=== PATIENT | female | born 1970 | race Caucasian/White ===

== ENCOUNTER → 2018-01-28 | Outpatient (CLI) | payer BC, OTHER ==
[~2018-01-28] MED LIST: ACET250 PO; DULO30CA35 PO; ESC10 PO; FURO-45 PO; GABA-549 PO; LIS10 PO; LOR5 PO; LOR5/325 PO; ONDA4TAB PO; PANT40TA65 PO; POTA20TA85 PO; TOPI50TA92 PO; TRA50 PO; TRAZ50 PO
--- NOTE | 2018-02-21 11:22 | RADIOLOGY IMAGING REPORT ---
FACILITY: [facility] - [place] PATIENT NAME: ZACH FLOREZ : [id number] MR: [id number] V: [id number] EXAM DATE: [id number] ORDERING PHYSICIAN: NAKUL GARCIA TECHNOLOGIST: Rhona Duran PROCEDURE:BILATERAL DIGITAL SCREENING MAMMOGRAM WITH CAD ASSISTED INTERPRETATION & 3D TOMOSYNTHESIS COMPARISON:Prior mammograms dated 04/12/14 which have just now become available. INDICATIONS:SCREENING FINDINGS: Moderate amount of fibroglandular tissue is seen throughout the breasts. The parenchymal pattern has mostly remained stable allowing for difference in mammographic technique & patient positioning. Just lateral to the nipple on the Right CC view there is a rounded area of increased density which is best seen on tomographic image #1 of 68. Spot compression view recommended for further evaluation. DIAGNOSTIC CATEGORY 0--INCOMPLETE: NEED ADDITIONAL IMAGING EVALUATION. RECOMMENDATIONS: ADDITIONAL MAMMOGRAPHIC VIEWS REQUIRED: RIGHT BREAST. IMPRESSION: BIRADS 0: Incomplete, need additional imaging evaluation. Additional views of the Right breast recommended. Dictated by: Maggie Billings M.D. on 02/21/2018 at 11:05 Transcribed by: ROC on 02/21/2018 at 11:08 Approved by: Maggie Billings M.D. on 02/21/2018 at 11:21 [facility]
== END ==
LOC: MAMO 01:30
PROVIDERS: ATTEND Nurse Practitioner Family
DX: Z12.31 Encounter for screening mammogram for malignant neoplasm of breast (principal); Z80.3 Family history of malignant neoplasm of breast; R92.2 Inconclusive mammogram
CPT/HCPCS: 77063; 77067

== ENCOUNTER 2018-02-02 16:24 | Emergency (ER) | payer BC ==
[~2018-02-02 16:24] MED LIST changes: -DULO30CA35 PO; -FURO-45 PO; -GABA-549 PO; -ONDA4TAB PO; -PANT40TA65 PO; -POTA20TA85 PO; -TOPI50TA92 PO
--- NOTE | 2018-02-02 16:28 | ER Report ---
History and Physical Time Seen By MD: 16:27 HPI/ROS CHIEF COMPLAINT: Right dorsal medial foot pain, edema HISTORY OF PRESENT ILLNESS: Patient is a 47-year-old female here status post injury to the dorsal medial right foot. Patient reportedly dropped a heavy jar of pickles on the dorsum of her foot yesterday at approximately 12:30 in the afternoon. Patient reports mild paresthesias of the plantar aspect of the foot, ecchymosis and increased swelling today. Patient does take hydrocodone for chronic pain and has been continuing this medication in the interim. Patient has not taken anti-inflammatory medications or applied ice packs to the site. Patient denies further injuries at this time and is otherwise neurovascularly intact with good perfusion distal to the injury site. REVIEW OF SYSTEMS: Constitutional: No fever, no chills. Musculoskeletal: + dorsal and medial right foot pain with increased edema today s/p trauma Skin: + ecchymosis of the dorsal medial right foot Neurological: NV exam intact distal to the injury site Allergies: Coded Allergies: Sulfa (Sulfonamide Antibiotics) (Verified Allergy, Mild, 09/21/08) Home Meds Reported Medications Lisinopril (Prinivil) 10 Mg Tab, 10 MG PO QDAY, #20 0 Refills 09/21/08 Trazodone Hcl (Desyrel) 50 Mg Tab, 25 MG PO HS, 0 Refills 09/21/08 Escitalopram Oxalate (Lexapro) 10 Mg Tab, 10 MG PO QDAY, 0 Refills 09/21/08 Acetaminophen/Hydrocodone (Lortab 5/325 Mg) 5 Mg/325 Mg Tab, 1 TAB PO Q6-8H Y, 0 Refills 09/21/08 Acetazolamide (Diamox) 250 Mg Tab, 500 MG PO TID, #20 0 Refills 09/21/08 Constitutional Vital Sign - Last 24 Hours 02/02/18 02/02/18 02/02/18 02/02/18 16:27 16:27 16:30 16:54 Temp 98.0 Pulse 82 74 Resp 20 B/P (MAP) 135/76 135/76 (95) 127/80 (96) Pulse Ox 93 O2 Delivery Room Air 02/02/18 02/02/18 17:00 17:24 Pulse 70 B/P (MAP) 131/75 (93) Pulse Ox 95 Physical Exam General Appearance: The patient is alert, has no immediate need for airway protection and no signs of toxicity. NAD Neurological: Neurovascular exam intact in the injured foot with good distal perfusion to the injury site Skin: + Ecchymosis of the dorsal medial right foot Musculoskeletal: + Pain and swelling at the injury site of the right foot, pain with range of motion and weightbearing DIFFERENTIAL DIAGNOSIS: After history and physical exam differential diagnosis was considered for contusion, abrasion, fracture, dislocation Medical Decision Making EKG/Imaging Imaging Location: [facility] [place] Patient: Mary Cui : 1970 Visit/Account:[id number] Date of Sevice: 02/02/2018 Exam type: FOOT 3 VIEW RIGHT History: Comparison: None. Findings: There is soft tissue swelling over the forefoot. No acute fracture seen. Metatarsals appear to be intact. Hallux valgus deformity is noted with degenerative changes at the 1st MTP joint. Calcaneal heel spur is noted. Degenerative changes are noted and midfoot. IMPRESSION: 1. Soft tissue swelling of the forefoot but no acute fracture identified. ED Course/Re-evaluation ED Course Patient is a 47-year-old female here status post dropping a pickle jar on her right foot yesterday approximately 12:30. Patient reports that the jar was large and heavy and that she has developed increased swelling and ecchymosis at the site since time of injury. Patient has been continuing her chronic pain medication hydrocodone but has not attempted to apply ice or anti-inflammatory agents. Patient is neurovascularly intact with good perfusion distal to the injury site. X-ray imaging was completed. Patient was given Toradol for anti- inflammatory effects. X-ray showed no acute fractures. Patient was advised to continue her home medications and apply ice and take NSAIDs for further symptom management. Patient was in no acute distress and able to ambulate without issue prior to discharge Decision to Disposition Date: Feb 02, 2018 Decision to Disposition Time: 17:29 Depart Departure Latest Vital Signs Vital Signs Date Time Temp Pulse Resp B/P (MAP) Pulse Ox O2 Delivery O2 Flow Rate FiO2 02/02/18 17:24 70 95 02/02/18 17:00 131/75 (93) 02/02/18 16:27 98.0 20 Room Air Impression: Primary Impression: Contusion Condition: Improved Disposition: HOME OR SELF-CARE Referrals: NAKUL GARCIA (PCP) Patient Instructions: Contusion in Adults (ED) Additional Instructions: No fracture was identified on x-ray imaging. Please continue your home pain medications as prescribed. You may take NSAIDs such as ibuprofen, naproxen as needed for inflammatory pain control. You may apply ice to the injury site for swelling and pain relief. DONTE GARCIA DO Feb 02, 2018 16:28
[2018-02-02] MEDS ORDERED: KETOROLAC 30 MG/ML VIAL IM ONE (16:35)
[2018-02-02 17:00] VITALS: BP 131/75
--- NOTE | 2018-02-02 17:06 | RADIOLOGY IMAGING REPORT ---
FACILITY: [facility] - [place] PATIENT NAME: Mary Cui : 1970 MR: [id number] V: [id number] EXAM DATE: ORDERING PHYSICIAN: DONTE GARCIA TECHNOLOGIST: Location: [facility] Patient: Mary Cui : 1970 Visit/Account:[id number] Date of Sevice: 02/02/2018 Exam type: FOOT 3 VIEW RIGHT History: Comparison: None. Findings: There is soft tissue swelling over the forefoot. No acute fracture seen. Metatarsals appear to be int act. Hallux valgus deformity is noted with degenerative changes at the 1st MTP joint. Calcaneal heel spur is noted. Degenerative changes are noted and midfoot. IMPRESSION: 1. Soft tissue swelling of the forefoot but no acute fracture identified. Report Dictated By: Aries Garcia MD at 02/02/2018 4:59 PM Report E-Signed By: Aries Garcia MD at 02/02/2018 5:01 PM [id number]
== END 2018-02-02 17:32 | disposition home or self-care (01) ==
LOC: ER 16:40
DX: S90.31XA Contusion of right foot, initial encounter (principal)
CPT/HCPCS: 73630; 96372; 99283; J1885

== ENCOUNTER 2018-02-09 08:55 | Emergency (ER) | payer BC ==
[2018-02-09] MEDS ORDERED: KETOROLAC 30 MG/ML VIAL IVP ONE (09:15)
[2018-02-09] MEDS ORDERED: METOCLOPRAMIDE 10 MG/2 ML SDV IVP ONE (09:15)
[2018-02-09] MEDS ORDERED: DEXAMETHASONE SOD PHOS 10MG/ML IVP ONE (09:15)
[2018-02-09] MEDS ORDERED: NS(*) 0.9% 1000 ML BAG 1,000 ML IV ONE (09:15)
--- NOTE | 2018-02-09 09:15 | ER Report ---
History and Physical Time Seen By MD: 09:15 Hx. of Stated Complaint: MIGRAINE X4 DAYS. HAS TAKE IMITREX & EXEDRINE THIS AM. MIGRAINE SIMILAR TO PAST ONES BUT WILL NOT CEASE. MAUSEA & 9/10 PAIN. DENIES TRAUMA. HPI/ROS 47-year-old female who has been battling worsening migraines for the past 6 months. She presents to the emergency department with atypical migraine, however it continues in spite of therapy she already has at home. Is not the worse headache of her life. No fever chills or meningismus. She is already working with a neurologist and a chiropractor. She denies any trauma. No focal neurologic deficits or complaints. Remainder of the 14 system rev: Yes Allergies: Coded Allergies: Sulfa (Sulfonamide Antibiotics) (Verified Allergy, Mild, 09/21/08) Home Meds Reported Medications Topiramate (TOPIRAMATE) 50 Mg Tablet, 50 MG PO BID 02/09/18 Gabapentin (GABAPENTIN) 300 Mg Capsule, 300 MG PO QID, CAPSULE 02/09/18 Duloxetine Hcl (CYMBALTA) 30 Mg Capsule.dr, 30 MG PO QDAY, #5 CAP 02/09/18 Furosemide (FUROSEMIDE) 20 Mg Tablet, 1 TAB PO Q6H, TAB 02/09/18 Pantoprazole Sodium (PANTOPRAZOLE SODIUM) 40 Mg Tablet.dr, 40 MG PO QDAY, TAB.SR 02/09/18 Acetaminophen/Hydrocodone (Lortab 5/325 Mg) 5 Mg/325 Mg Tab, 1 TAB PO Q6-8H PRN, 0 Refills 09/21/08 Discontinued Reported Medications Lisinopril (Prinivil) 10 Mg Tab, 10 MG PO QDAY, #20 0 Refills 09/21/08 Trazodone Hcl (Desyrel) 50 Mg Tab, 25 MG PO HS, 0 Refills 09/21/08 Escitalopram Oxalate (Lexapro) 10 Mg Tab, 10 MG PO QDAY, 0 Refills 09/21/08 Acetazolamide (Diamox) 250 Mg Tab, 500 MG PO TID, #20 0 Refills 09/21/08 Reviewed Nurses Notes: Yes Old Medical Records Reviewed: Yes Hx Smoking: No Smoking Status: Never Smoker Exposure to Second Hand Smoke?: No Hx Substance Use Disorder: No Hx Alcohol Use: No Constitutional Vital Sign - Last 24 Hours 02/09/18 02/09/18 02/09/18 09:06 09:52 10:18 Temp 98.0 Pulse 71 78 Resp 18 12 B/P (MAP) 129/82 115/64 (81) Pulse Ox 95 98 O2 Delivery Room Air Room Air Physical Exam General Appearance: The patient is alert, has no immediate need for airway protection and no current signs of toxicity. Eyes: Pupils equal and round no injection. Respiratory: Chest is non tender, lungs are clear to auscultation. Cardiac: regular rate and rhythm Neck: Neck is supple and non tender. Extremities have full range of motion and are non tender. Skin: No rashes or lesions. DIFFERENTIAL DIAGNOSIS: After history and physical exam differential diagnosis was considered for headache including but not limited to subarachnoid hemorrhage, migraine headache, tension headache and infectious causes such as meningitis, pharyngitis and sinusitis. Medical Decision Making ED Course/Re-evaluation ED Course Uncomplicated migraine headache treated adequately with Reglan, Toradol, and Decadron. Not worrisome for meningitis, other infection, or SAH. Will follow-up with primary providers. Decision to Disposition Date: Feb 09, 2018 Decision to Disposition Time: 10:14 Depart Departure Latest Vital Signs Vital Signs Date Time Temp Pulse Resp B/P (MAP) Pulse Ox O2 Delivery O2 Flow Rate FiO2 02/09/18 10:18 78 12 115/64 (81) 98 Room Air 02/09/18 09:52 98.0 Impression: Primary Impression: Migraine headache Condition: Improved Disposition: HOME OR SELF-CARE Referrals: NAKUL GARCIA (PCP) Patient Instructions: Migraine Headache (ED) Problem Qualifiers Primary Impression: Migraine headache Migraine type: without aura Status migrainosus presence: without status migrainosus Intractability: not intractable Qualified Codes: G43.009 - Migraine without aura, not intractable, without status migrainosus JEFF TAVAREZ MD Feb 09, 2018 09:15
[2018-02-09] MEDS ORDERED: DULO30CA35 PO (09:45)
[2018-02-09] MEDS ORDERED: TOPI50TA92 PO (09:45)
[2018-02-09] MEDS ORDERED: FURO-45 PO (09:45)
[2018-02-09] MEDS ORDERED: GABA-549 PO (09:45)
[2018-02-09] MEDS ORDERED: PANT40TA65 PO (09:45)
[2018-02-09 10:18] VITALS: BP 115/64
== END 2018-02-09 10:24 | disposition home or self-care (01) ==
LOC: ER 09:10
DX: G43.009 Migraine without aura, not intractable, without status migrainosus (principal)
CPT/HCPCS: 96361; 96374; 96375; 99284; J1100; J1885; J2765; J7030

== ENCOUNTER 2018-02-18 20:13 | Emergency (ER) | payer BC ==
[~2018-02-18 20:13] MED LIST changes: +DULO30CA35 PO; +FURO-45 PO; +GABA-549 PO; +PANT40TA65 PO; +TOPI50TA92 PO
--- NOTE | 2018-02-18 20:23 | ER Report ---
History and Physical Time Seen By MD: 20:23 HPI/ROS CHIEF COMPLAINT: abdominal pain HISTORY OF PRESENT ILLNESS: This is a 47 year old female. She is having pain in the right side of the abdomen. Having right upper abdominal pain for the last fe w days, some radiation to CVA on right. Today started with pain in the right lower abdomen as well. No fevers or chills with this. Nothing makes the pain better. Normal bowels. No dysuria. Having some nausea, but no vomiting. Has had her appendix removed. Has had her gallbladder removed. Has had a gastric band, with complication with a hole in stomach that was repaired. History of hysterectomy. Allergies: Coded Allergies: Sulfa (Sulfonamide Antibiotics) (Verified Allergy, Mild, 09/21/08) Home Meds Active Scripts Potassium Chloride (KLOR-CON M20) 20 Meq Tab.er.prt, 20 MEQ PO QDAY, #30 TAB 0 Refills Prov:RANDAL CONTRERAS MD 02/19/18 Ondansetron (ZOFRAN ODT) 4 Mg Tab.rapdis, 4 MG PO Q6H PRN for NAUSEA/VOMITING, #20 TAB.TIMOTHY 0 Refills Prov:RANDAL CONTRERAS MD 02/19/18 Hydrocodone Bit/Acetaminophen (HYDROCODON-ACETAMINOPHEN 5-325) 1 Each Tablet, 1 EACH PO Q4H PRN for PAIN, #12 TAB 0 Refills Prov:RANDAL CONTRERAS MD 02/19/18 Reported Medications Topiramate (TOPIRAMATE) 50 Mg Tablet, 50 MG PO BID 02/09/18 Gabapentin (GABAPENTIN) 300 Mg Capsule, 300 MG PO QID, CAPSULE 02/09/18 Duloxetine Hcl (CYMBALTA) 30 Mg Capsule.dr, 30 MG PO QDAY, #5 CAP 02/09/18 Furosemide (FUROSEMIDE) 20 Mg Tablet, 1 TAB PO Q6H, TAB 02/09/18 Pantoprazole Sodium (PANTOPRAZOLE SODIUM) 40 Mg Tablet.dr, 40 MG PO QDAY, TAB.SR 02/09/18 Acetaminophen/Hydrocodone (Lortab 5/325 Mg) 5 Mg/325 Mg Tab, 1 TAB PO Q6-8H PRN, 0 Refills 09/21/08 Reviewed Nurses Notes: Yes Hx Smoking: No Smoking Status: Never Smoker Exposure to Second Hand Smoke?: No Hx Substance Use Disorder: No Hx Alcohol Use: No Constitutional Vital Sign - Last 24 Hours 02/18/18 02/18/18 02/18/18 02/18/18 20:21 22:15 22:30 23:00 Temp 97.8 Pulse 83 71 69 65 Resp 18 B/P (MAP) 124/64 116/56 (76) Pulse Ox 94 90 92 87 O2 Delivery Room Air 02/18/18 02/18/18 02/18/18 02/18/18 23:15 23:30 23:35 23:45 Pulse ? 62 B/P (MAP) ???/??? (1665) 132/51 (78) Pulse Ox 97 97 02/19/18 02/19/18 02/19/18 00:00 00:15 00:30 Pulse 64 66 B/P (MAP) 104/49 (67) 121/68 (85) Pulse Ox 97 98 Intake and Output 02/18/18 02/18/18 02/19/18 14:59 22:59 06:59 Intake Total 1000 ml Balance 1000 ml Physical Exam General Appearance: The patient is alert. Acute distress due to pain. Eyes: Pupils are equal, round. No pallor, injection or icterus. ENT: Mucous membranes are moist. Normal oral mucosa. Posterior oropharynx is normal. Neck: Supple and non tender. Respiratory: Lungs are clear to auscultation. Cardiovascular: Regular rate and rhythm. No murmurs, gallops or rubs. Normal capillary refill. Gastrointestinal: Abdomen is soft, tender in right abdomen. Some guarding, but no rebound. Nondistended. Normal active bowel sounds. Some right sided CVA tenderness. Neurological: Alert and oriented x3. No focal neurologic deficits Skin: Warm and dry. Musculoskeletal: Extremities are nontender. No tenderness in palpation of the cervical, thoracic and lumbar spine. DIFFERENTIAL DIAGNOSIS: After history and physical exam, differential diagnosis was considered for abdominal pain including but not limited to pancreatitis, gastroenteritis, colitis and urinary tract infection. Medical Decision Making Data Points Result Diagram: 02/18/18204002/18/182040 Laboratory Hematology Test 02/18/18 20:41 02/18/18 21:04 Red Blood Count 4.71 M/uL (4.17-5.56) Mean Corpuscular Volume 92.6 fL (80.0-96.0) Mean Corpuscular Hemoglobin 32.1 pg (26.0-33.0) Mean Corpuscular Hemoglobin Concent 34.6 g/dL (32.0-36.0) Red Cell Distribution Width 12.8 % (11.5-14.5) Mean Platelet Volume 7.2 fL (7.2-11.1) Neutrophils (%) (Auto) 67.5 % (39.4-72.5) Lymphocytes (%) (Auto) 23.9 % (17.6-49.6) Monocytes (%) (Auto) 6.6 % (4.1-12.4) Eosinophils (%) (Auto) 1.1 % (0.4-6.7) Basophils (%) (Auto) 0.9 % (0.3-1.4) Nucleated RBC Relative Count (auto) 0.1 /100WBC Neutrophils # (Auto) 6.5 K/uL (2.0-7.4) Lymphocytes # (Auto) 2.3 K/uL (1.3-3.6) Monocytes # (Auto) 0.6 K/uL (0.3-1.0) Eosinophils # (Auto) 0.1 K/uL (0.0-0.5) Basophils # (Auto) 0.1 K/uL (0.0-0.1) Nucleated RBC Absolute Count (auto) 0.01 K/uL Sodium Level 137 mmol/L (137-145) Potassium Level 2.6 mmol/L (3.5-5.0) Chloride Level 100 mmol/L (98-107) Carbon Dioxide Level 29 mmol/L (22-31) Blood Urea Nitrogen 14 mg/dl (7-18) Creatinine 0.60 mg/dl (0.52-1.04) Glomerular Filtration Rate Calc > 60.0 Random Glucose 107 mg/dl (75-110) Lactate 1.4 mmol/L (0.7-2.1) Calcium Level 8.5 mg/dl (8.4-10.2) Total Bilirubin 0.2 mg/dl (0.2-1.3) Aspartate Amino Transf (AST/SGOT) 20 U/L (0-35) Alanine Aminotransferase (ALT/SGPT) 24 U/L (0-56) Alkaline Phosphatase 49 U/L (0-126) Total Protein 5.9 g/dl (6.3-8.2) Albumin 3.8 g/dl (3.5-5.0) Amylase Level 55 U/L (0-110) Lipase 93 U/L (23-300) Urine Color Yellow Urine Clarity Clear Urine pH 6.0 pH (4.8-9.5) Urine Specific [place] 1.004 Urine Protein Negative mg/dL (NEGATIVE) Urine Glucose (UA) Negative mg/dL (NEGATIVE) Urine Ketones Negative mg/dL (NEGATIVE) Urine Blood Negative (NEGATIVE) Urine Nitrite Negative (NEGATIVE) Urine Bilirubin Negative (NEGATIVE) Urine Urobilinogen Negative mg/dL (0.2-1.9) Urine Leukocyte Esterase Negative (NEGATIVE) Urine RBC <1 /HPF (0-2/HPF) Urine WBC 1 /HPF (0-5/HPF) Urine Squamous Epithelial Cells Many /LPF (</=FEW) Urine Bacteria Few /HPF (NONE-FEW) Urine Mucus None /HPF (NONE-FEW) Chemistry Test 02/18/18 20:41 02/18/18 21:04 White Blood Count 9.6 k/uL (4.5-11.0) Red Blood Count 4.71 M/uL (4.17-5.56) Hemoglobin 15.1 g/dL (12.0-16.0) Hematocrit 43.7 % (34.0-47.0) Mean Corpuscular Volume 92.6 fL (80.0-96.0) Mean Corpuscular Hemoglobin 32.1 pg (26.0-33.0) Mean Corpuscular Hemoglobin Concent 34.6 g/dL (32.0-36.0) Red Cell Distribution Width 12.8 % (11.5-14.5) Platelet Count 242 K/uL (150-450) Mean Platelet Volume 7.2 fL (7.2-11.1) Neutrophils (%) (Auto) 67.5 % (39.4-72.5) Lymphocytes (%) (Auto) 23.9 % (17.6-49.6) Monocytes (%) (Auto) 6.6 % (4.1-12.4) Eosinophils (%) (Auto) 1.1 % (0.4-6.7) Basophils (%) (Auto) 0.9 % (0.3-1.4) Nucleated RBC Relative Count (auto) 0.1 /100WBC Neutrophils # (Auto) 6.5 K/uL (2.0-7.4) Lymphocytes # (Auto) 2.3 K/uL (1.3-3.6) Monocytes # (Auto) 0.6 K/uL (0.3-1.0) Eosinophils # (Auto) 0.1 K/uL (0.0-0.5) Basophils # (Auto) 0.1 K/uL (0.0-0.1) Nucleated RBC Absolute Count (auto) 0.01 K/uL Glomerular Filtration Rate Calc > 60.0 Lactate 1.4 mmol/L (0.7-2.1) Calcium Level 8.5 mg/dl (8.4-10.2) Total Bilirubin 0.2 mg/dl (0.2-1.3) Aspartate Amino Transf (AST/SGOT) 20 U/L (0-35) Alanine Aminotransferase (ALT/SGPT) 24 U/L (0-56) Alkaline Phosphatase 49 U/L (0-126) Total Protein 5.9 g/dl (6.3-8.2) Albumin 3.8 g/dl (3.5-5.0) Amylase Level 55 U/L (0-110) Lipase 93 U/L (23-300) Urine Color Yellow Urine Clarity Clear Urine pH 6.0 pH (4.8-9.5) Urine Specific [place] 1.004 Urine Protein Negative mg/dL (NEGATIVE) Urine Glucose (UA) Negative mg/dL (NEGATIVE) Urine Ketones Negative mg/dL (NEGATIVE) Urine Blood Negative (NEGATIVE) Urine Nitrite Negative (NEGATIVE) Urine Bilirubin Negative (NEGATIVE) Urine Urobilinogen Negative mg/dL (0.2-1.9) Urine Leukocyte Esterase Negative (NEGATIVE) Urine RBC <1 /HPF (0-2/HPF) Urine WBC 1 /HPF (0-5/HPF) Urine Squamous Epithelial Cells Many /LPF (</=FEW) Urine Bacteria Few /HPF (NONE-FEW) Urine Mucus None /HPF (NONE-FEW) Urinalysis Test 02/18/18 21:04 Urine Color Yellow Urine Clarity Clear Urine pH 6.0 pH (4.8-9.5) Urine Specific [place] 1.004 Urine Protein Negative mg/dL (NEGATIVE) Urine Glucose (UA) Negative mg/dL (NEGATIVE) Urine Ketones Negative mg/dL (NEGATIVE) Urine Blood Negative (NEGATIVE) Urine Nitrite Negative (NEGATIVE) Urine Bilirubin Negative (NEGATIVE) Urine Urobilinogen Negative mg/dL (0.2-1.9) Urine Leukocyte Esterase Negative (NEGATIVE) Urine RBC <1 /HPF (0-2/HPF) Urine WBC 1 /HPF (0-5/HPF) Urine Squamous Epithelial Cells Many /LPF (</=FEW) Urine Bacteria Few /HPF (NONE-FEW) Urine Mucus None /HPF (NONE-FEW) EKG/Imaging Imaging EXAMINATION: CT abdomen with IV contrast CT pelvis with IV contrast HISTORY: Right-sided abdominal pain for one week. History of appendectomy and cholecystectomy. COMPARISON: None. TECHNIQUE: Axial images were taken through the abdomen and pelvis with intravenous contrast. Sagittal and coronal reformatted images are also submitted. CONTRAST: 75 mL of IV Isovue-[id number] One of the following dose optimization techniques was utilized in the performance of this exam: Automated exposure control; adjustment of the mA and/or kV according to the patient's size; or use of an iterative reconstruction technique. Specific details can be referenced in the facility's radiology CT exam operational policy. FINDINGS: Liver/biliary: Status post cholecystectomy. The liver is unremarkable. Pancreas: Negative. Spleen: Negative. Adrenal glands: Negative. Kidneys: Several small cysts in both kidneys. No hydronephrosis. Pelvic structures: Status post hysterectomy. A 1.8 cm simple appearing cyst or dominant follicle in the left ovary. A 1.6 cm cyst or follicle in the right ovary. Bowel: There is focal wall thickening of the stomach at the gastroesophageal junction. Status post appendectomy. Peritoneum/retroperitoneum/mesenteries: No intraperitoneal free air or free fluid. Vessels: Mild calcified plaque of the aorta and iliac arteries. Musculoskeletal/body wall: Surgical changes in the anterior abdominal wall. Mild multilevel disc and facet degenerative changes in the lumbar spine. Lymph node assessment: Negative. Lower chest: Negative. IMPRESSION: No CT evidence of acute pathology in the abdomen or pelvis. Focal wall thickening of the stomach at the gastroesophageal junction likely represents changes from previous surgery. Several small cysts in the kidneys. 1.8 cm cyst or follicle in the left ovary and 1.6 cm cyst or follicle in the right ovary. Report Dictated By: Danielito Coello MD at 02/18/2018 10:07 PM EXAMINATION: ENDOVAGINAL PELVIC ULTRASOUND WITH DOPPLER DATE: 02/18/2018 10:48 PM INDICATION: Right-sided pain. TECHNIQUE: Endovaginal ramos scale, color, and pulsed Doppler ultrasound examination of the pelvis was performed. COMPARISON: Same day CT abdomen and pelvis. FINDINGS: The uterus is surgically absent. The right ovary measures 2.9 x 3.1 x 2.6 cm and demonstrates a probable dominant follicle measuring 2 cm in diameter and normal arterial waveforms on pulsed Doppler. The left ovary measures 3.4 x 3.0 x 2.5 cm and demonstrates a probable dominant follicle measuring 1.8 cm in diameter and normal arterial waveforms on pulsed Doppler. There is no free fluid or adnexal mass in the pelvic cavity. IMPRESSION: Probable bilateral dominant ovarian follicles with no evidence of torsion. Report Dictated By: Thong Marmolejo MD at 02/18/2018 11:56 PM ED Course/Re-evaluation Clinical Indication for ER IV: Hydration, IV Access ED Course Labs were unremarkable other than low potassium and I discussed this with the patient. CT scan was negative for acute abnormality. Ultrasound was done transvaginally and shows no signs of torsion or other problems other than small cysts on the ovary. No sign of cyst rupture. Patient was still having pain. We did cover her several doses of IV pain medicine while here in the ER. After discussion of the labs and imaging results, recommended follow-up with her [facility] doctor and suggested GI evaluation with possible need for colonoscopy for further evaluation of her pain. Decision to Disposition Date: Feb 19, 2018 Decision to Disposition Time: 00:15 Depart Departure Latest Vital Signs Vital Signs Date Time Temp Pulse Resp B/P (MAP) Pulse Ox O2 Delivery O2 Flow Rate FiO2 02/19/18 00:30 121/68 (85) 02/19/18 00:15 66 98 02/18/18 20:21 97.8 18 Room Air Impression: Primary Impression: Abdominal pain Additional Impression: Hypokalemia Condition: Stable Disposition: HOME OR SELF-CARE Referrals: NAKUL GARCIA (PCP) New Scripts Potassium Chloride (KLOR-CON M20) 20 Meq Tab.er.prt 20 MEQ PO QDAY, #30 TAB 0 Refills Prov: RANDAL CONTRERAS MD 02/19/18 Ondansetron (ZOFRAN ODT) 4 Mg Tab.rapdis 4 MG PO Q6H PRN for NAUSEA/VOMITING, #20 TAB.TIMOTHY 0 Refills Prov: RANDAL CONTRERAS MD 02/19/18 Hydrocodone Bit/Acetaminophen (HYDROCODON-ACETAMINOPHEN 5-325) 1 Each Tablet 1 EACH PO Q4H PRN for PAIN, #12 TAB 0 Refills Prov: RANDAL CONTRERAS MD 02/19/18 Patient Instructions: Acute Abdominal Pain (ED) Additional Instructions: We did not find a major problem that would account for abdominal pain on your evaluation tonight. The next step in your evaluation would be to follow-up with Dr. Garrison here in [facility] for re-evaluation, or with a GI specialist. Take Lortab 5/325, one every 4 hours as needed for pain. Take Zofran 4mg, one every 6 hours as needed for nausea. Take KCl 20mEq once a day and follow-up for repeat labs. Problem Qualifiers Primary Impression: Abdominal pain Abdominal location: unspecified location Qualified Codes: R10.9 - Unspecified abdominal pain RANDAL CONTRERAS MD Feb 18, 2018 20:23
[2018-02-18] MEDS ORDERED: NS(*) 0.9% 1000 ML BAG 1,000 ML IV ONE (20:28)
[2018-02-18] MEDS ORDERED: ONDANSETRON 4 MG/2 ML VIAL IVP ONE (20:30)
[2018-02-18] MEDS ORDERED: PANTOPRAZOLE SOD 40 MG IV VIAL IVP ONE (20:30)
[2018-02-18] MEDS ORDERED: MORPHINE 4 MG/ML SDV IVP ONE (20:30)
[2018-02-18] MEDS ORDERED: IOPAMIDOL 76% 75 ML INFUS BTL 75 ML ONE (20:44)
[2018-02-18 20:51] LABS: PLATELET COUNT, AUTOMATED 242 K/uL (150-450)
[2018-02-18] MEDS ORDERED: HYDROMORPHONE HCL 1 MG/ML SYRINGE IVP ONE ×2 (21:40→22:50)
--- NOTE | 2018-02-18 22:29 | RADIOLOGY IMAGING REPORT ---
FAC[place] [facility] [place] NAME: Mary Cui : 1970 MR: [id number] V: [id number] EXAM DATE: ORDERING PHYSICIAN: RANDAL CONTRERAS TECHNOLOGIST: Location: [facility] - [place] Patient: Mary Cui : 1970 Visit/Account:[id number] Date of Sevice: 02/18/2018 EXAMINATION: CT abdomen with IV contrast CT pelvis with IV contrast HISTORY: Right-sided abdominal pain for one week. History of appendectomy and cholecystectomy. COMPARISON: None. TECHNIQUE: Axial images were taken through the abdomen and pelvis with intravenous contrast. Sagitt al and coronal reformatted images are also submitted. CONTRAST: 75 mL of IV [id number] One of the following dose optimization techniques was utilized in the performance of this exam: Autom ated exposure control; adjustment of the mA and/or kV according to the patient's size; or use of an i terative reconstruction technique. Specific details can be referenced in the facility's radiology C T exam operational policy. FINDINGS: Liver/biliary: Status post cholecystectomy. The liver is unremarkable. Pancreas: Negative. Spleen: Negative. Adrenal glands: Negative. Kidneys: Several small cysts in both kidneys. No hydronephrosis. Pelvic structures: Status post hysterectomy. A 1.8 cm simple appearing cyst or dominant follicle i n the left ovary. A 1.6 cm cyst or follicle in the right ovary. Bowel: There is focal wall thickening of the stomach at the gastroesophageal junction. Status post ap pendectomy. Peritoneum/retroperitoneum/mesenteries: No intraperitoneal free air or free fluid. Vessels: Mild calcified plaque of the aorta and iliac arteries. Musculoskeletal/body wall: Surgical changes in the anterior abdominal wall. Mild multilevel disc and facet degenerative changes in the lumbar spine. Lymph node assessment: Negative. Lower chest: Negative. IMPRESSION: No CT evidence of acute pathology in the abdomen or pelvis. Focal wall thickening of the stomach at the gastroesophageal junction likely represents changes from previous surgery. Several small cysts in the kidneys. 1.8 cm cyst or follicle in the left ovary and 1.6 cm cyst or follicle in the right ovary. Report Dictated By: Danielito Coello MD at 02/18/2018 10:07 PM Report E-Signed By: Danielito Coello MD at 02/18/2018 10:25 PM WSN:[id number]
--- NOTE | 2018-02-19 00:03 | RADIOLOGY IMAGING REPORT ---
FAC[place] [facility] [place]IENT NAME: Mary Cui : 1970 MR: [id number] V: [id number] EXAM DATE: ORDERING PHYSICIAN: RANDAL CONTRERAS TECHNOLOGIST: [facility] Patient: Mary Cui : 1970 Visit/Account:[id number] Date of Sevice: 02/18/2018 EXAMINATION: ENDOVAGINAL PELVIC ULTRASOUND WITH DOPPLER DATE: 02/18/2018 10:48 PM INDICATION: Right-sided pain. TECHNIQUE: Endovaginal ramos scale, color, and pulsed Doppler ultrasound examination of the pelvis was performed. COMPARISON: Same day CT abdomen and pelvis. FINDINGS: The uterus is surgically absent. The right ovary measures 2.9 x 3.1 x 2.6 cm and demonstrates a probable dominant follicle measuring 2 cm in diameter and normal arterial waveforms on pulsed Doppler. The left ovary measures 3.4 x 3.0 x 2.5 cm and demonstrates a probable dominant follicle measuring 1.8 cm in diameter and normal arterial waveforms on pulsed Doppler. There is no free fluid or adnexal mass in the pelvic cavity. IMPRESSION: Probable bilateral dominant ovarian follicles with no evidence of torsion. Report Dictated By: Thong Marmolejo MD at 02/18/2018 11:56 PM Report E-Signed By: Thong Marmolejo MD at 02/18/2018 11:59 PM WSN:[id number]
[2018-02-19] MEDS ORDERED: ONDANSETRON 4 MG ODT TABDP SL ONE (00:15)
[2018-02-19] MEDS ORDERED: ONDANSETRON 4 MG ODT TH SL ONE (00:15)
[2018-02-19] MEDS ORDERED: ACET/HYDROC 5/325MG TH ER ONLY 2 TAB/BOTTLE PO ONE (00:15)
[2018-02-19] MEDS ORDERED: POTASSIUM CHL 20 MEQ TABCR PO ONE (00:15)
[2018-02-19] MEDS ORDERED: APAP/HYDROCODONE 325/5 TAB PO ONE (00:15)
[2018-02-19] MEDS ORDERED: LOR5/325 PO (00:17)
[2018-02-19] MEDS ORDERED: ONDA4TAB PO (00:17)
[2018-02-19] MEDS ORDERED: POTA20TA85 PO (00:17)
[2018-02-19 00:30] VITALS: BP 121/68
== END 2018-02-19 00:58 | disposition home or self-care (01) ==
LOC: ER 20:35
DX: E87.6 Hypokalemia (principal); R10.11 Right upper quadrant pain
CPT/HCPCS: 74177; 76830; 81001; 82150; 83605; 83690; 85025; 96361; 96374; 96375; 96376; 99284; C9113; J1170; J2270; J2405; J7030; Q9967; S0119; 82040; 82247; 82310; 82374; 82435; 82565; 82947; 84075; 84132; 84155; 84295; 84450; 84460; 84520

== ENCOUNTER → 2018-02-25 | Outpatient (CLI) | payer BC ==
[~2018-02-25] MED LIST changes: +ONDA4TAB PO; +POTA20TA85 PO
--- NOTE | 2018-02-26 08:24 | RADIOLOGY IMAGING REPORT ---
FACILITY: [facility] - [place], [place] PATIENT NAME: ZACH FLOREZ : [id number] MR: [id number] V: [id number] EXAM DATE: ORDERING PHYSICIAN: NAKUL GARCIA TECHNOLOGIST: Rhona Duran PROCEDURE:RIGHT DIGITAL DIAGNOSTIC MAMMOGRAM WITH CAD ASSISTED INTERPRETATION & 3D TOMOSYNTHESIS COMPARISON:Prior mammograms 01/28/18, 04/12/14. INDICATIONS:FURTHER EVAL FINDINGS: The patient returns for Spot compression view in the Right CC projection and a rolled Right CC view. The small focal area of increased density just lateral to the nipple on the recent Right CC view appears compressible and apparently represented summation shadow. There is no demonstration of malignant appearing mass or calcification in the Right breast. DIAGNOSTIC CATEGORY 1--NEGATIVE. RECOMMENDATIONS: ROUTINE MAMMOGRAM AND CLINICAL EVALUATION. IMPRESSION: BIRADS 1: Negative. No significant abnormality of the Right breast is seen. Dictated by: Maggie Billings M.D. on 02/25/2018 at 14:35 Transcribed by: JEFERSON on 02/25/2018 at 15:02 Approved by: Maggie Billings M.D. on 02/26/2018 at 8:23 [facility]
== END ==
LOC: MAMO 01:01
PROVIDERS: ATTEND Nurse Practitioner Family
DX: R92.8 Other abnormal and inconclusive findings on diagnostic imaging of breast (principal)
CPT/HCPCS: 77061; 77065

== ENCOUNTER 2018-03-04 16:29 | Emergency (ER) | payer BC ==
[2018-03-04] MEDS ORDERED: NS(*) 0.9% 1000 ML BAG 1,000 ML IV ONE (17:05)
[2018-03-04] MEDS ORDERED: ONDANSETRON 4 MG/2 ML VIAL IVP ONE (17:05)
[2018-03-04] MEDS ORDERED: MORPHINE 4 MG/ML SDV IVP ONE ×2 (17:05→18:10)
--- NOTE | 2018-03-04 17:14 | ER Report ---
History and Physical Time Seen By MD: 17:02 Hx. of Stated Complaint: RLQ & EPIGASTRIC PAIN RADIATES TO RIGHT FLANK, DIARRHEA, CHILLS HPI/ROS CHIEF COMPLAINT: Right-sided abdominal pain HISTORY OF PRESENT ILLNESS: This is a 47-year-old female who presents to the emergency department for abdominal pain. Patient states that she has had persistent epigastric and right-sided abdominal pain that now radiates into her right flank. Patient was seen and evaluated proximal leg 14 days ago, she had a similar presentation, was noted to have ovarian cysts, patient states that this is different and the pain is now in her flank. Patient also has diarrhea. No blood noted, she does have nausea no vomiting at this time. No fevers or chills. No chest pain or shortness of breath. No rashes. No dysuria. No headaches. She was also encouraged to follow-up with Dr. Jurado for an upper GI. She has no gallbladder or appendix. REVIEW OF SYSTEMS: Constitutional: No fever, no chills. Eyes: No discharge. ENT: No sore throat. Cardiovascular: No chest pain, no palpitations. Respiratory: No cough, no shortness of breath. Gastrointestinal: As above. Genitourinary: No hematuria. Musculoskeletal: No back pain. Skin: No rashes. Neurological: No headache. Allergies: Coded Allergies: Sulfa (Sulfonamide Antibiotics) (Verified Allergy, Mild, 03/04/18) Home Meds Active Scripts Potassium Chloride (KLOR-CON M20) 20 Meq Tab.er.prt, 20 MEQ PO QDAY, #30 TAB 0 Refills Prov:RANDAL CONTRERAS MD 02/19/18 Ondansetron (ZOFRAN ODT) 4 Mg Tab.rapdis, 4 MG PO Q6H PRN for NAUSEA/VOMITING, #20 TAB.TIMOTHY 0 Refills Prov:RANDAL CONTRERAS MD 02/19/18 Reported Medications Topiramate (TOPIRAMATE) 50 Mg Tablet, 50 MG PO BID 02/09/18 Gabapentin (GABAPENTIN) 300 Mg Capsule, 300 MG PO QID, CAPSULE 02/09/18 Duloxetine Hcl (CYMBALTA) 30 Mg Capsule.dr, 30 MG PO QDAY, #5 CAP 02/09/18 Furosemide (FUROSEMIDE) 20 Mg Tablet, 1 TAB PO Q6H, TAB 02/09/18 Pantoprazole Sodium (PANTOPRAZOLE SODIUM) 40 Mg Tablet.dr, 40 MG PO QDAY, TAB.SR 02/09/18 Acetaminophen/Hydrocodone (Lortab 5/325 Mg) 5 Mg/325 Mg Tab, 1 TAB PO TID, 0 Refills 09/21/08 Discontinued Scripts Hydrocodone Bit/Acetaminophen (HYDROCODON-ACETAMINOPHEN 5-325) 1 Each Tablet, 1 EACH PO Q4H PRN for PAIN, #12 TAB 0 Refills Prov:RANDAL CONTRERAS MD 02/19/18 Past Medical/Surgical History The patient has a past medical and surgical history of fibromyalgia, pseudotumor cerebra A, migraines, LAP-BAND, appendectomy, GERD, cholecystectomy, chronic back pain, hysterectomy. Reviewed Nurses Notes: Yes Hx Smoking: No Smoking Status: Never Smoker Exposure to Second Hand Smoke?: No Hx Substance Use Disorder: No Hx Alcohol Use: No Constitutional Vital Sign - Last 24 Hours 03/04/18 03/04/18 03/04/18 03/04/18 16:33 16:35 16:45 17:00 Temp 98.0 Pulse 87 83 77 Resp 16 B/P (MAP) 116/84 116/84 (95) 113/72 (86) Pulse Ox 92 94 93 O2 Delivery Room Air 03/04/18 03/04/18 03/04/18 03/04/18 17:15 17:45 18:00 18:15 Pulse 74 70 67 63 B/P (MAP) 133/72 (92) Pulse Ox 92 91 97 96 03/04/18 03/04/18 03/04/18 03/04/18 18:30 18:45 19:00 19:15 Pulse 65 67 63 65 B/P (MAP) 114/79 (91) Pulse Ox 92 94 93 94 03/04/18 03/04/18 03/04/18 03/04/18 19:30 19:45 20:00 20:15 Pulse 66 63 70 60 B/P (MAP) 106/73 (84) 110/70 (83) Pulse Ox 93 94 93 94 03/04/18 03/04/18 20:30 20:45 Pulse 60 65 B/P (MAP) 113/78 (90) Pulse Ox 92 94 Physical Exam General Appearance: The patient is alert, has no immediate need for airway protection and no signs of toxicity. Eyes: Pupils equal and round no pallor or injection. ENT, Mouth: Mucous membranes are moist. Respiratory: There are no retractions, lungs are clear to auscultation. Cardiovascular: Regular rate and rhythm. Gastrointestinal: Abdomen is soft, tenderness to the right upper and lower quadrants. No tenderness to the left upper lower quadrants. No masses, normoactive bowel sounds. Neurological: Alert and oriented 4. Moving all extremities. Following all commands. No focal neuro deficits. Skin: Warm and dry, no rashes. Musculoskeletal: Neck is supple non tender. Right CVA tenderness. Extremities are nontender, nonswollen and have full range of motion. [ ] DIFFERENTIAL DIAGNOSIS: After history and physical exam differential diagnosis was considered for abdominal pain in a female including but not limited to ovarian cyst, pelvic inflammatory disease, renal colic, ovarian torsion, urinary tract infection, and appendicitis. Medical Decision Making Data Points Result Diagram: 03/04/18 1645 03/04/18 1645 Laboratory Hematology Test 03/04/18 16:45 03/04/18 17:30 Red Blood Count 4.85 M/uL (4.17-5.56) Mean Corpuscular Volume 91.5 fL (80.0-96.0) Mean Corpuscular Hemoglobin 31.5 pg (26.0-33.0) Mean Corpuscular Hemoglobin Concent 34.4 g/dL (32.0-36.0) Red Cell Distribution Width 13.0 % (11.5-14.5) Mean Platelet Volume 7.3 fL (7.2-11.1) Neutrophils (%) (Auto) 59.0 % (39.4-72.5) Lymphocytes (%) (Auto) 30.8 % (17.6-49.6) Monocytes (%) (Auto) 7.8 % (4.1-12.4) Eosinophils (%) (Auto) 1.2 % (0.4-6.7) Basophils (%) (Auto) 1.2 % (0.3-1.4) Nucleated RBC Relative Count (auto) 0.0 /100WBC Neutrophils # (Auto) 3.5 K/uL (2.0-7.4) Lymphocytes # (Auto) 1.8 K/uL (1.3-3.6) Monocytes # (Auto) 0.5 K/uL (0.3-1.0) Eosinophils # (Auto) 0.1 K/uL (0.0-0.5) Basophils # (Auto) 0.1 K/uL (0.0-0.1) Nucleated RBC Absolute Count (auto) 0.00 K/uL Sodium Level 138 mmol/L (137-145) Potassium Level 3.4 mmol/L (3.5-5.0) Chloride Level 105 mmol/L (98-107) Carbon Dioxide Level 24 mmol/L (22-31) Blood Urea Nitrogen 14 mg/dl (7-18) Creatinine 0.60 mg/dl (0.52-1.04) Glomerular Filtration Rate Calc > 60.0 Random Glucose 104 mg/dl (75-110) Calcium Level 8.8 mg/dl (8.4-10.2) Total Bilirubin 0.3 mg/dl (0.2-1.3) Aspartate Amino Transf (AST/SGOT) 25 U/L (0-35) Alanine Aminotransferase (ALT/SGPT) 25 U/L (0-56) Alkaline Phosphatase 55 U/L (0-126) Total Protein 6.6 g/dl (6.3-8.2) Albumin 4.1 g/dl (3.5-5.0) Lipase 74 U/L (23-300) Helicobacter pylori IgG Antibody Negative (NEGATIVE) Urine Color Yellow Urine Clarity Clear Urine pH 5.0 pH (4.8-9.5) Urine Specific [place] 1.021 Urine Protein Negative mg/dL (NEGATIVE) Urine Glucose (UA) Negative mg/dL (NEGATIVE) Urine Ketones Negative mg/dL (NEGATIVE) Urine Blood Negative (NEGATIVE) Urine Nitrite Negative (NEGATIVE) Urine Bilirubin Negative (NEGATIVE) Urine Urobilinogen 2.0 mg/dL (0.2-1.9) Urine Leukocyte Esterase Negative (NEGATIVE) Urine RBC None /HPF (0-2/HPF) Urine WBC 2 /HPF (0-5/HPF) Urine Squamous Epithelial Cells Many /LPF (</=FEW) Urine Bacteria Negative /HPF (NONE-FEW) Urine Mucus Few /HPF (NONE-FEW) Chemistry Test 03/04/18 16:45 03/04/18 17:30 White Blood Count 6.0 k/uL (4.5-11.0) Red Blood Count 4.85 M/uL (4.17-5.56) Hemoglobin 15.3 g/dL (12.0-16.0) Hematocrit 44.4 % (34.0-47.0) Mean Corpuscular Volume 91.5 fL (80.0-96.0) Mean Corpuscular Hemoglobin 31.5 pg (26.0-33.0) Mean Corpuscular Hemoglobin Concent 34.4 g/dL (32.0-36.0) Red Cell Distribution Width 13.0 % (11.5-14.5) Platelet Count 338 K/uL (150-450) Mean Platelet Volume 7.3 fL (7.2-11.1) Neutrophils (%) (Auto) 59.0 % (39.4-72.5) Lymphocytes (%) (Auto) 30.8 % (17.6-49.6) Monocytes (%) (Auto) 7.8 % (4.1-12.4) Eosinophils (%) (Auto) 1.2 % (0.4-6.7) Basophils (%) (Auto) 1.2 % (0.3-1.4) Nucleated RBC Relative Count (auto) 0.0 /100WBC Neutrophils # (Auto) 3.5 K/uL (2.0-7.4) Lymphocytes # (Auto) 1.8 K/uL (1.3-3.6) Monocytes # (Auto) 0.5 K/uL (0.3-1.0) Eosinophils # (Auto) 0.1 K/uL (0.0-0.5) Basophils # (Auto) 0.1 K/uL (0.0-0.1) Nucleated RBC Absolute Count (auto) 0.00 K/uL Glomerular Filtration Rate Calc > 60.0 Calcium Level 8.8 mg/dl (8.4-10.2) Total Bilirubin 0.3 mg/dl (0.2-1.3) Aspartate Amino Transf (AST/SGOT) 25 U/L (0-35) Alanine Aminotransferase (ALT/SGPT) 25 U/L (0-56) Alkaline Phosphatase 55 U/L (0-126) Total Protein 6.6 g/dl (6.3-8.2) Albumin 4.1 g/dl (3.5-5.0) Lipase 74 U/L (23-300) Helicobacter pylori IgG Antibody Negative (NEGATIVE) Urine Color Yellow Urine Clarity Clear Urine pH 5.0 pH (4.8-9.5) Urine Specific [place] 1.021 Urine Protein Negative mg/dL (NEGATIVE) Urine Glucose (UA) Negative mg/dL (NEGATIVE) Urine Ketones Negative mg/dL (NEGATIVE) Urine Blood Negative (NEGATIVE) Urine Nitrite Negative (NEGATIVE) Urine Bilirubin Negative (NEGATIVE) Urine Urobilinogen 2.0 mg/dL (0.2-1.9) Urine Leukocyte Esterase Negative (NEGATIVE) Urine RBC None /HPF (0-2/HPF) Urine WBC 2 /HPF (0-5/HPF) Urine Squamous Epithelial Cells Many /LPF (</=FEW) Urine Bacteria Negative /HPF (NONE-FEW) Urine Mucus Few /HPF (NONE-FEW) Urinalysis Test 03/04/18 17:30 Urine Color Yellow Urine Clarity Clear Urine pH 5.0 pH (4.8-9.5) Urine Specific [place] 1.021 Urine Protein Negative mg/dL (NEGATIVE) Urine Glucose (UA) Negative mg/dL (NEGATIVE) Urine Ketones Negative mg/dL (NEGATIVE) Urine Blood Negative (NEGATIVE) Urine Nitrite Negative (NEGATIVE) Urine Bilirubin Negative (NEGATIVE) Urine Urobilinogen 2.0 mg/dL (0.2-1.9) Urine Leukocyte Esterase Negative (NEGATIVE) Urine RBC None /HPF (0-2/HPF) Urine WBC 2 /HPF (0-5/HPF) Urine Squamous Epithelial Cells Many /LPF (</=FEW) Urine Bacteria Negative /HPF (NONE-FEW) Urine Mucus Few /HPF (NONE-FEW) EKG/Imaging Imaging Location: [facility] - [place] Patient: Mary Cui : 1970 Visit/Account:[id number] Date of Sevice: 03/04/2018 EXAMINATION: CT Abdomen and Pelvis Without Contrast 03/04/2018 5:05 PM HISTORY: flank pain, eval for stone TECHNIQUE: Renal stone protocol - Spiral scan was obtained through the kidneys, ureters and bladder without intravenous contrast. One of the following dose optimization techniques was utilized in the performance of this exam: Automated exposure control; adjustment of the mA and/or kV according to the patient's size; or use of an iterative reconstruction technique. Specific details can be referenced in the facility's radiology CT exam operational policy. COMPARISON STUDIES: CT with contrast 02/18/2018. FINDINGS: Right kidney and ureter: No kidney stone or obstruction. No perinephric stranding. Renal cortical cysts are better defined by the recent study with contrast. Left kidney and ureter: Nonobstructive less than 2 mm mid pole stone. No ureteral stone or dilatation. As with the right, renal cysts are better defined by the recent unenhanced comparison. Bladder: negative Liver / biliary: Prior cholecystectomy. Pancreas: negative Spleen: negative Adrenal glands: negative Retroperitoneum: negative Pelvic structures: Prior hysterectomy. Bowel / peritoneum / mesenteries: Segments of the colon have a thick-walled appearance I think this is due to the collapsed state and other intervening segments of the colon with better gaseous distention have a normal thin wall. No clear features of colitis. Prior appendectomy. Gas in the stomach and descending duodenum with transition to collapsed duodenum towards the midline of Treitz with nondistended small bowel distal to this containing some gas and fluid. No inflammation around the duodenum. Mild thickening at the GE junction again shown. Vessels: Atherosclerosis. Musculoskeletal / Body wall: Degenerative changes in the spine. Lymph node assessment: negative Lower chest: negative IMPRESSION: 1. Negative evaluation for kidney stone or obstruction on the right. Nonobstructive small stone in the left kidney. 2. Gas-filled stomach and duodenum with transition to collapsed duodenum towards the ligament of Treitz. No clear obstructing process is demonstrated and there is no inflammation in fat around the serosal margins of the duodenum, and this is possibly transient air swallowing. 3. Thickening of the GE junction. Postsurgical etiology would be favored assuming there is history for this such as fundoplication. 4. Thickened segments of colon which appear to probably be technical as discus sed above without clear features of colitis. Report Dictated By: Les Jimenez MD at 03/04/2018 6:32 PM Report E-Signed By: Les Jimenez MD at 03/04/2018 6:42 PM WSN:[id number] ED Course/Re-evaluation Clinical Indication for ER IV: Hydration, IV Access ED Course The patient was admitted to a room. A history and physical were obtained. Differential diagnoses were considered. An IV was started. And lipase were obtained. Lab studies unremarkable. A UA was collected which was unremarkable. A CT of the abdomen and pelvis was negative for kidney stones or obstruction or obstruction on the right, there is a nonobstructive small stone in the left kidney. Gas filled stomach and one M with transition to collapsed duodenum towards the ligament treats no obstruction process, no inflammation. No definitive colitis. I reviewed the laboratory studies and the CT results with the patient. I did ask if she is been drinking carbonated beverages recently, she states she's had an increase in carbonated consumption recently. I did offer them a therapeutic decompression of her stomach using a nasogastric tube, the patient did elect to try this. The nasogastric tube was placed, gastric contents and air was evacuated. The patient had significant relief with the NG tube. Patient states she is feeling much better and feels that she could go home. I did tell her to avoid carbonated beverages, no chewing gum and follow-up with her primary care provider within the next week. I also recommended contacting Dr. Zamudio's office for a possible endoscopy, this does not need to be done anytime soon. The patient had no other questions or concerns at this time and was discharged home. Patient was given a 1 L normal saline bolus, 4 mg IV Zofr an, 4 mg IV morphine 2, 50 g IV fentanyl prior to the NG tube placement. There was approximately 300 mL of contents evacuated from the stomach. Decision to Disposition Date: Mar 04, 2018 Decision to Disposition Time: 21:03 Depart Departure Latest Vital Signs Vital Signs Date Time Temp Pulse Resp B/P (MAP) Pulse Ox O2 Delivery O2 Flow Rate FiO2 03/04/18 20:45 65 94 03/04/18 20:30 113/78 (90) 03/04/18 16:33 98.0 16 Room Air Impression: Primary Impression: Abdominal gas pain Condition: Improved Disposition: HOME OR SELF-CARE Referrals: NAKUL GARCIA (PCP) 1 Week TODD ZAMUDIO MD Patient Instructions: Abdominal Pain (ED) Additional Instructions: There is no evidence of obstruction or kidney stone be causing the pain today. On the CT scan that showing your stomach is distended commonly seen with air swallowing. I would recommend following up with your primary care provider within one week for reevaluation. I would also recommend avoiding carbonated beverages. I would also avoid chewing gum. Drink plenty of water. Get plenty of rest. Return to the emergency department for any other concerns or worsening symptoms. MAXIMINO CARDENAS PERSONNEL ASSOCIATE-BC Mar 04, 2018 17:14
[2018-03-04 17:17] LABS: PLATELET COUNT, AUTOMATED 338 K/uL (150-450)
--- NOTE | 2018-03-04 18:46 | RADIOLOGY IMAGING REPORT ---
FACILITY: [facility] PATIENT NAME: Mary Cui : 1970 MR: [id number] V: [id number] EXAM DATE: ORDERING PHYSICIAN: MAXIMINO CARDENAS TECHNOLOGIST: Location: [facility] Patient: Mary Cui : 1970 Visit/Account:[id number] Date of Sevice: 03/04/2018 EXAMINATION: CT Abdomen and Pelvis Without Contrast 03/04/2018 5:05 PM HISTORY: flank pain, eval for stone TECHNIQUE: Renal stone protocol - Spiral scan was obtained through the kidneys, ureters and bladder without intravenous contrast. One of the following dose optimization techniques was utilized in the performance of this exam: Autom ated exposure control; adjustment of the mA and/or kV according to the patient's size; or use of an i terative reconstruction technique. Specific details can be referenced in the facility's radiology C T exam operational policy. COMPARISON STUDIES: CT with contrast 02/18/2018. FINDINGS: Right kidney and ureter: No kidney stone or obstruction. No perinephric stranding. Renal cortical cys ts are better defined by the recent study with contrast. Left kidney and ureter: Nonobstructive less than 2 mm mid pole stone. No ureteral stone or dilatation . As with the right, renal cysts are better defined by the recent unenhanced comparison. Bladder: negative Liver / biliary: Prior cholecystectomy. Pancreas: negative Spleen: negative Adrenal glands: negative Retroperitoneum: negative Pelvic structures: Prior hysterectomy. Bowel / peritoneum / mesenteries: Segments of the colon have a thick-walled appearance I think this i s due to the collapsed state and other intervening segments of the colon with better gaseous distenti on have a normal thin wall. No clear features of colitis. Prior appendectomy. Gas in the stomach and descending duodenum with transition to collapsed duodenum towards the midline of [place] with nondiste nded small bowel distal to this containing some gas and fluid. No inflammation around the duodenum. M ild thickening at the GE junction again shown. Vessels: Atherosclerosis. Musculoskeletal / Body wall: Degenerative changes in the spine. Lymph node assessment: negative Lower chest: negative IMPRESSION: 1. Negative evaluation for kidney stone or obstruction on the right. Nonobstructive small stone in th e left kidney. 2. Gas-filled stomach and duodenum with transition to collapsed duodenum towards the ligament of Trei tz. No clear obstructing process is demonstrated and there is no inflammation in fat around the seros al margins of the duodenum, and this is possibly transient air swallowing. 3. Thickening of the GE junction. Postsurgical etiology would be favored assuming there is history fo r this such as fundoplication. 4. Thickened segments of colon which appear to probably be technical as discussed above without clear features of colitis. Report Dictated By: Les Jimenez MD at 03/04/2018 6:32 PM Report E-Signed By: Les Jimenez MD at 03/04/2018 6:42 PM WSN:[id number]
[2018-03-04] MEDS ORDERED: LIDOCAINE 2% VISC SLN 15ML UDC PO ONE (19:35)
[2018-03-04] MEDS ORDERED: fentaNYL CITR 100 MCG/2 ML AMP IVP ONE (19:40)
[2018-03-04 20:30] VITALS: BP 113/78
== END 2018-03-04 21:09 | disposition home or self-care (01) ==
LOC: ER 16:42
DX: R14.1 Gas pain (principal); N20.0 Calculus of kidney
CPT/HCPCS: 74176; 81001; 83690; 85025; 86677; 96361; 96374; 96375; 96376; 99284; J2270; J2405; J3010; J7030; 82040; 82247; 82310; 82374; 82435; 82565; 82947; 84075; 84132; 84155; 84295; 84450; 84460; 84520

== ENCOUNTER → 2018-04-30 | Outpatient (CLI) | payer BC ==
[~2018-04-30] MED LIST changes: +BARIUM SULFATE 176 GM BTL PO ONE; +BARIUM SULFATE 340 GM POWD ONE; +DULO60CA56 PO; +HYDR-389 PO; +LORA-630 PO; +SUMA25TA26 PO; +TOPI-23 PO; +[UNRECOGNIZED DRUG - REMARK] PO
--- NOTE | 2018-04-30 15:45 | RADIOLOGY IMAGING REPORT ---
FACILITY: [facility] [place] PATIENT NAME: Mary Cui : 1970 MR: [id number] V: [id number] EXAM DATE: ORDERING PHYSICIAN: TODD ZAMUDIO TECHNOLOG[place]: [place] [facility] [place] Cui : 1970 Visit/Account:[id number] Date of Sevice: 04/30/2018 Upper GI with small bowel follow-through INDICATION: History of abdominal pain. Patient has a history of a lap band. She had subsequent comp lication with a perforation at the GE junction and subsequent operative fixation with a patch. COMPARISON: Prior cross-sectional imaging, most recent March 04, 2018 FINDINGS: The thoracic esophagus, stomach, and duodenum were studied with barium air contrast technique. Effervescent crystals were administered to the patient followed by thick and thin barium solution wit hout difficulty. There is a normal swallowing mechanism with no evidence of aspiration. The structures of the hypopha rynx are symmetric. There is distention of the thoracic esophagus without evidence of abnormal extri nsic compression, erosion or intraluminal filling defect. Mild presbyesophagus is seen with secondar y contractions. Early and later phase images demonstrate abnormal shouldering of the mucosa at the GE junction on the left. On the early images, there is an abnormal appearance of the proximal stomach which is assumed to be postoperative, correlating to the region of soft tissue thickening on the previous CT examinat ion. On later phase images, there is more normal appearance of the fundus, body and antrum. Persist ent shouldering is noted on the left at the level of the GE junction. Imaging of the duodenum is unremarkable. 15 minute imaging during 15 minute early imaging during the small bowel follow-through demonstrates n ormal distention of the duodenum and the proximal jejunum without obstructive process as there was co ncern in this region on the previous CT. Subsequent periodic spot images were taken during small bow el follow through. Normal intestinal pattern of the jejunum and ileum without fixed stricture or int raluminal filling defect. Small bowel transition time to the large intestine is noted at approximate ly three hours, delayed. IMPRESSION: 1. Upper GI portion of this examination demonstrates abnormal left-sided shouldering at the GE juncti on which correlates to the soft tissue thickening noted from the CT examination and is assumed to be postoperative in nature. Further evaluation could be obtained with a endoscopy. 2. Small bowel follow-through demonstrates normal transit and appearance of the duodenum and proxima l jejunum, a region which was concerning for possible partial obstruction on the prior CT examination . 3. Small bowel follow-through demonstrates transit time three hours, indicative of some degree of un derlying dysmotility. Report Dictated By: Braden Corona MD at 04/30/2018 3:06 PM Report E-Signed By: Braden Corona MD at 04/30/2018 3:40 PM WSN:[email or web address]
== END ==
LOC: RAD 01:04
PROVIDERS: ATTEND Surgery
DX: R10.9 Unspecified abdominal pain (principal); R14.0 Abdominal distension (gaseous)
CPT/HCPCS: 74245

== ENCOUNTER 2018-05-13 01:49 | Day surgery (SDC) | payer BC ==
[2018-05-12 11:52] LABS: PLATELET COUNT, AUTOMATED 318 K/uL (150-450)
[2018-05-13] VITALS (9 sets, daily range): BP systolic 91–123; BP diastolic 46–73
[~2018-05-13] VITALS: Ht 172.7 cm; Wt 87.1 kg
[~2018-05-13 01:49] MED LIST changes: -BARIUM SULFATE 176 GM BTL PO ONE; -BARIUM SULFATE 340 GM POWD ONE
[2018-05-13] MEDS ORDERED: PROPOFOL EMUL(*) 10MG/ML 20 ML 40 ML ONE (07:05)
[2018-05-13] MEDS ORDERED: GLYCOPYRROLATE 0.2MG/ML 1 ML INJ IVP ONE (07:15)
[2018-05-13] MEDS ORDERED: NORMOSOL R SOLN(*) 1000 ML BAG 1,000 ML IV PRN (08:00)
[2018-05-13] MEDS ORDERED: LIDOCAINE/SOD BICARB 8.4% SYR ID ONE (08:00)
[2018-05-13] MEDS ORDERED: ONDANSETRON 4 MG/2 ML VIAL IVP ONE (08:05)
--- NOTE | 2018-05-13 09:33 | Short(Outpt) Discharge Summary ---
Discharge Summary Reason for Hosp/Final Diag: (1) Abdominal pain Status: Chronic Hospital Course & Plan: EGD with biopsies completed without problems. (2) Nausea Status: Chronic Departure Discharge to: Home, Self Care Discharge Instructions Home Meds Active Scripts Pantoprazole Sodium (PANTOPRAZOLE SODIUM) 40 Mg Tablet.dr, 1 TAB PO BID, #60 TAB.SR 3 Refills Prov:TODD ZAMUDIO MD 04/14/18 Potassium Chloride (KLOR-CON M20) 20 Meq Tab.er.prt, 20 MEQ PO QDAY, #30 TAB 0 Refills Prov:RANDAL CONTRERAS MD 02/19/18 Ondansetron (ZOFRAN ODT) 4 Mg Tab.rapdis, 4 MG PO Q6H PRN for NAUSEA/VOMITING, #20 TAB.TIMOTHY 0 Refills Prov:RANDAL CONTRERAS MD 02/19/18 Reported Medications Sumatriptan Succinate (IMITREX) 25 Mg Tablet, 25 MG PO ONCE PRN for MIGRAINE 05/01/18 Duloxetine Hcl (CYMBALTA) 60 Mg Capsule.dr, 1 CAP PO QDAY, #5 CAP 04/02/18 Lorazepam (LORAZEPAM) 0.5 Mg Tablet, 1 TAB PO TID PRN for PRN 04/02/18 Topiramate (TOPIRAMATE) 25 Mg Tablet, 2 TAB PO BID 04/02/18 Acetaminophen/Hydrocodone (HYDROCODON-ACETAMINOPH 7.5-325) 1 Each Ea, 1 TAB PO QID, EA 04/02/18 Gabapentin (GABAPENTIN) 300 Mg Capsule, 2 TAB PO QID, CAPSULE 02/09/18 Duloxetine Hcl (CYMBALTA) 30 Mg Capsule.dr, 1 CAP PO QHS, #5 CAP 02/09/18 Furosemide (FUROSEMIDE) 20 Mg Tablet, 1 TAB PO QDAY, TAB 02/09/18 Diet: Regular Activity: As Tolerated Special Instructions: Your upper endoscopy was completed without any problems. Your stomach repair looks well healed. I didn't find any inflammation, ulcers, masses or other abnormalities but I performed some biopsies to rule out H. pylori infection and gluten enteropathy. My office will call you in the next couple of days to schedule a follow up appointment so we can discuss the results of all of your testing so far and determine the next steps in your care. Problem Qualifiers (1) Abdominal pain: Abdominal location: generalized Qualified Codes: R10.84 - Generalized abd ominal pain TODD ZAMUDIO MD May 13, 2018 09:33
== END 2018-05-13 10:55 | disposition home or self-care (01) ==
LOC: OR 01:49
PROVIDERS: ATTEND Surgery
DX: R11.0 Nausea (principal); R10.84 Generalized abdominal pain
CPT/HCPCS: 36415; 43239; 82248; 83516; 83690; 84443; 85025; 85651; 86140; 87077; 88305; J2405; J2704; J3490; 82040; 82247; 82310; 82374; 82435; 82565; 82947; 84075; 84132; 84155; 84295; 84450; 84460; 84520

== ENCOUNTER 2018-05-19 16:13 | Emergency (ER) | payer OTHER, BC ==
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
[2018-05-19] MEDS ORDERED: DULO60CA7 PO ×2 (16:28)
[2018-05-19] MEDS ORDERED: ORPHENADRINE 60MG/2ML INJ IM ONE (16:55)
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
[2018-05-19] MEDS ORDERED: PRED20TA6 PO (17:25)
[2018-05-19] MEDS ORDERED: CYCL10TA29 PO (17:25)
[2018-05-19 17:30] VITALS: BP 136/79
== END 2018-05-19 17:46 | disposition home or self-care (01) ==
LOC: ER 16:26
DX: M54.12 Radiculopathy, cervical region (principal)
CPT/HCPCS: 72050; 72072; 96372; 99284; J2360

== ENCOUNTER 2018-07-24 22:25 | Emergency (ER) | payer BC ==
[~2018-07-24 22:25] MED LIST changes: -OXYC-865 PO; -SUCR1TAB85 PO
--- NOTE | 2018-07-24 22:34 | ER Report ---
History and Physical Time Seen By : 22:33 HPI/ROS CHIEF COMPLAINT: chest and epigastric pain HISTORY OF PRESENT ILLNESS: This is a 48 year old female. She has had chest and epigastric area pain, off and on for several weeks, worsened today. Pain worsens with palpation, movement and breathing. Work-up earlier today with primary care, normal EKG, Troponin, D-dimer, CBC and CMP. Chest x-ray negative as well. NO fevers, but is having chills. No cough. Abd pain is in the epigastric area. Having some nausea, no vomiting. Has bowel problems, recently medications adjusted. EGD a couple of months ago with Dr. Zamudio, no problems noted. On Pro tonix and Zantac. Allergies: Coded Allergies: Sulfa (Sulfonamide Antibiotics) (Verified Allergy, Mild, 07/24/18) Home Meds Active Scripts Sucralfate (CARAFATE) 1 Gm Tablet, 1 GM PO QID, #120 TAB 0 Refills Prov:RANDAL CONTRERAS MD 07/25/18 Prednisone (PREDNISONE) 20 Mg Tablet, 40 MG PO QDAY, #8 TAB 0 Refills Prov:RANDAL CONTRERAS MD 07/25/18 Oxycodone Hcl/Acetaminophen (PERCOCET 5-325 MG TABLET) 1 Each Tablet, 1 EACH PO Q4H PRN for PAIN, #12 TAB 0 Refills Prov:RANDAL CONTRERAS MD 07/25/18 Ranitidine Hcl (RANITIDINE HCL) 300 Mg Tablet, 1 TAB PO QHS, #60 TAB 6 Refills Prov:TODD ZAMUDIO MD 06/03/18 Pantoprazole Sodium (PANTOPRAZOLE SODIUM) 40 Mg Tablet.dr, 1 TAB PO QDAY, #60 TAB.SR 3 Refills Prov:TODD ZAMUDIO MD 06/03/18 Potassium Chloride (KLOR-CON M20) 20 Meq Tab.er.prt, 20 MEQ PO QDAY, #30 TAB 0 Refills Prov:RANDAL CONTRERAS MD 02/19/18 Ondansetron (ZOFRAN ODT) 4 Mg Tab.rapdis, 4 MG PO Q6H PRN for NAUSEA/VOMITING, #20 TAB.TIMOTHY 0 Refills Prov:RANDAL CONTRERAS MD 02/19/18 Reported Medications Duloxetine HCl (Duloxetine HCl) 60 Mg Capsule.dr, 30 MG PO QHS 05/19/18 Duloxetine HCl (Duloxetine HCl) 60 Mg Capsule.dr, 60 MG PO QAM 05/19/18 Sumatriptan Succinate (IMITREX) 25 Mg Tablet, 25 MG PO ONCE PRN for MIGRAINE 05/01/18 Lorazepam (LORAZEPAM) 0.5 Mg Tablet, 1 TAB PO TID PRN for PRN 04/02/18 Topiramate (TOPIRAMATE) 25 Mg Tablet, 2 TAB PO BID 04/02/18 Acetaminophen/Hydrocodone (HYDROCODON-ACETAMINOPH 7.5-325) 1 Each Ea, 1 TAB PO QID, EA 04/02/18 Gabapentin (GABAPENTIN) 300 Mg Capsule, 2 TAB PO QID, CAPSULE 02/09/18 Furosemide (FUROSEMIDE) 20 Mg Tablet, 1 TAB PO QDAY, TAB 02/09/18 Discontinued Scripts Prednisone (PREDNISONE) 20 Mg Tablet, 20 MG PO BID, #10 TAB Prov:MAXIMINO CARDENAS [facility] 05/19/18 Cyclobenzaprine Hcl (CYCLOBENZAPRINE HCL) 10 Mg Tablet, 5-10 MG PO TID PRN for MUSCLE SPASMS, #9 TAB Prov:MAXIMINO CARDENAS [facility] 05/19/18 Reviewed Nurses Notes: Yes Hx Smoking: Yes (1/2 PPD X 10 YRS) Smoking Status: Current: Every Day Smoker Exposure to Second Hand Smoke?: No Hx Substance Use Disorder: No Hx Alcohol Use: No Constitutional Vital Sign - Last 24 Hours 07/24/18 07/24/18 07/24/18 07/24/18 22:29 22:32 22:40 22:55 Temp 98.1 Pulse 81 77 70 Resp 23 7 15 B/P (MAP) 141/77 133/75 (94) Pulse Ox 95 95 93 O2 Delivery Room Air 07/24/18 07/24/18 07/24/18 07/24/18 23:10 23:22 23:25 23:30 Pulse 66 67 Resp 42 10 B/P (MAP) 124/62 (82) 116/36 (62) Pulse Ox 90 92 07/24/18 07/24/18 07/25/18 07/25/18 23:35 23:50 00:00 00:05 Pulse 74 ? Resp 25 15 17 B/P (MAP) 140/72 (94) Pulse Ox 93 92 07/25/18 07/25/18 07/25/18 07/25/18 00:10 00:25 00:47 01:00 Pulse 64 64 Resp 13 13 B/P (MAP) 115/66 (82) 115/59 (77) Pulse Ox 91 88 07/25/18 07/25/18 07/25/18 07/25/18 01:05 01:20 01:30 01:35 Pulse 64 64 66 Resp 15 14 13 B/P (MAP) 113/62 (79) Pulse Ox 96 95 95 07/25/18 01:45 Pulse 72 Resp 9 Pulse Ox 96 Intake and Output 07/24/18 07/24/18 07/25/18 15:00 23:00 07:00 Intake Total 1000 ml Balance 1000 ml Physical Exam General Appearance: The patient is alert. No acute distress. Eyes: Pupils are equal, round. No pallor, injection or icterus. ENT: Mucous membranes are moist. Normal oral mucosa. Posterior oropharynx is normal. Neck: Supple and non tender. Respiratory: Lungs are clear to auscultation. Cardiovascular: Regular rate and rhythm. No murmurs, gallops or rubs. Normal capillary refill. Gastrointestinal: Abdomen is soft with epigastric tenderness. Nondistended. Normal active bowel sounds. Neurological: Alert and oriented x3. No focal neurologic deficits Skin: Warm and dry. Musculoskeletal: Reproduced pain with palpation over the front of the chest. Full range of motion. No tenderness in palpation of the back and spine. DIFFERENTIAL DIAGNOSIS: After history and physical exam, differential diagnosis was considered for chest and epigastric pain including but not limited to peptic ulcer disease, pancreatitis, and gastroenteritis, and consider causes of chest pain including myocardial ischemia, pericarditis disection, chest wall pain, pleural inflammation and pulmonary infectious causes. Medical Decision Making Data Points Result Diagram: 07/24/18223107/24/182231 Laboratory Hematology Test 07/24/18 22:32 07/24/18 22:52 07/24/18 23:02 Red Blood Count 5.36 M/uL (4.17-5.56) Mean Corpuscular Volume 92.4 fL (80.0-96.0) Mean Corpuscular Hemoglobin 31.6 pg (26.0-33.0) Mean Corpuscular Hemoglobin Concent 34.2 g/dL (32.0-36.0) Red Cell Distribution Width 12.8 % (11.5-14.5) Mean Platelet Volume 7.3 fL (7.2-11.1) Neutrophils (%) (Auto) 65.4 % (39.4-72.5) Lymphocytes (%) (Auto) 25.0 % (17.6-49.6) Monocytes (%) (Auto) 7.8 % (4.1-12.4) Eosinophils (%) (Auto) 0.6 % (0.4-6.7) Basophils (%) (Auto) 1.2 % (0.3-1.4) Nucleated RBC Relative Count (auto) 0.0 /100WBC Neutrophils # (Auto) 7.0 K/uL (2.0-7.4) Lymphocytes # (Auto) 2.7 K/uL (1.3-3.6) Monocytes # (Auto) 0.8 K/uL (0.3-1.0) Eosinophils # (Auto) 0.1 K/uL (0.0-0.5) Basophils # (Auto) 0.1 K/uL (0.0-0.1) Nucleated RBC Absolute Count (auto) 0.00 K/uL Erythrocyte Sedimentation Rate 8 mm/HOUR (0-20) Sodium Level 140 mmol/L (137-145) Potassium Level 3.8 mmol/L (3.5-5.0) Chloride Level 111 mmol/L (98-107) Carbon Dioxide Level 25 mmol/L (22-31) Blood Urea Nitrogen 17 mg/dl (7-18) Creatinine 0.70 mg/dl (0.52-1.04) Glomerular Filtration Rate Calc > 60.0 Random Glucose 97 mg/dl (75-110) Calcium Level 9.8 mg/dl (8.4-10.2) Total Bilirubin 0.4 mg/dl (0.2-1.3) Aspartate Amino Transf (AST/SGOT) 32 U/L (0-35) Alanine Aminotransferase (ALT/SGPT) 32 U/L (0-56) Alkaline Phosphatase 67 U/L (0-126) C-Reactive Protein 0.5 mg/dl (<1.0) Total Protein 7.5 g/dl (6.3-8.2) Albumin 4.4 g/dl (3.5-5.0) Amylase Level 49 U/L (0-110) Lipase 91 U/L (23-300) Troponin I < 0.012 ng/ml Prothrombin Time 12.7 seconds (12.0-14.4) Prothromb Time International Ratio 0.96 Activated Partial Thromboplast Time 28 seconds (23-35) Chemistry Test 07/24/18 22:32 07/24/18 22:52 07/24/18 23:02 White Blood Count 10.7 k/uL (4.5-11.0) Red Blood Count 5.36 M/uL (4.17-5.56) Hemoglobin 16.9 g/dL (12.0-16.0) Hematocrit 49.5 % (34.0-47.0) Mean Corpuscular Volume 92.4 fL (80.0-96.0) Mean Corpuscular Hemoglobin 31.6 pg (26.0-33.0) Mean Corpuscular Hemoglobin Concent 34.2 g/dL (32.0-36.0) Red Cell Distribution Width 12.8 % (11.5-14.5) Platelet Count 354 K/uL (150-450) Mean Platelet Volume 7.3 fL (7.2-11.1) Neutrophils (%) (Auto) 65.4 % (39.4-72.5) Lymphocytes (%) (Auto) 25.0 % (17.6-49.6) Monocytes (%) (Auto) 7.8 % (4.1-12.4) Eosinophils (%) (Auto) 0.6 % (0.4-6.7) Basophils (%) (Auto) 1.2 % (0.3-1.4) Nucleated RBC Relative Count (auto) 0.0 /100WBC Neutrophils # (Auto) 7.0 K/uL (2.0-7.4) Lymphocytes # (Auto) 2.7 K/uL (1.3-3.6) Monocytes # (Auto) 0.8 K/uL (0.3-1.0) Eosinophils # (Auto) 0.1 K/uL (0.0-0.5) Basophils # (Auto) 0.1 K/uL (0.0-0.1) Nucleated RBC Absolute Count (auto) 0.00 K/uL Erythrocyte Sedimentation Rate 8 mm/HOUR (0-20) Glomerular Filtration Rate Calc > 60.0 Calcium Level 9.8 mg/dl (8.4-10.2) Total Bilirubin 0.4 mg/dl (0.2-1.3) Aspartate Amino Transf (AST/SGOT) 32 U/L (0-35) Alanine Aminotransferase (ALT/SGPT) 32 U/L (0-56) Alkaline Phosphatase 67 U/L (0-126) C-Reactive Protein 0.5 mg/dl (<1.0) Total Protein 7.5 g/dl (6.3-8.2) Albumin 4.4 g/dl (3.5-5.0) Amylase Level 49 U/L (0-110) Lipase 91 U/L (23-300) Troponin I < 0.012 ng/ml Prothrombin Time 12.7 seconds (12.0-14.4) Prothromb Time International Ratio 0.96 Activated Partial Thromboplast Time 28 seconds (23-35) Coagulation Test 07/24/18 23:02 Prothrombin Time 12.7 seconds Prothromb Time International Ratio 0.96 Activated Partial Thromboplast Time 28 seconds EKG/Imaging EKG Interpretation 12 lead EKG: Rhythm: Normal sinus rhythm, rate 69 [place]: normal QRS: Low-voltage ST segments: normal Imaging CHEST: Indication: Chest pain. Technique: Frontal and lateral views were obtained. Comparison: A prior study from earlier the same day. Skeletal and soft tissue structures: There are mild degenerative changes in the spine. No acute skeletal deformity is identified. Heart and mediastinum: Within normal limits. Lung milton: Well expanded and clear. No focal or diffuse opacities. Pleural spaces: Unremarkable. Impression: No acute process or significant change. Report Dictated By: Ron Armstrong MD at 07/24/2018 11:[address] CTA CHEST ABDOMEN PELVIS W & W/O HISTORY: Chest and epigastric pain. TECHNIQUE: CTA chest, abdomen and pelvis without and with contrast. 3D coronal slab MIPs and 2D reconstructions in the coronal and sagittal planes were also created. One of the following dose optimization techniques was utilized in the performance of this exam: Automated exposure control; adjustment of the mA and/or kV according to the patient's size; or use of an iterative reconstruction technique. Specific details can be referenced in the facility's radiology CT exam operational policy. CONTRAST: 75 mL Isovue-370. COMPARISON: CT abdomen/pelvis dated March 04, 2018. CT chest dated September 21, 2008. FINDINGS: Chest: Vessels: Negative. No evidence for aneurysm or dissection. Heart: Negative. Mediastinum: Negative. Lymph nodes: Negative. Lungs/pleura: Negative. Bones/soft tissues: Negative. Abdomen and Pelvis: Vessels: No aneurysm or dissection. Minimal atherosclerosis within the infrarenal abdominal aorta. Hepatobiliary: Gallbladder surgically absent. Otherwise negative. Spleen: Negative. Adrenals: Negative. Pancreas: Negative. Kidneys/: Punctate 1 mm nonobstructing calculus within the left kidney. Small bilateral renal cysts and subcentimeter hypodensities which are too small to characterize however statistically represents cysts. Uterus surgically absent. Otherwise negative. GI: Moderate volume stool within the colon. Appendix appears to be absent. Otherwise negative. No wall thickening or evidence for obstruction. Spaces/nodes: Negative. Bones/soft tissues: Negative. IMPRESSION: 1. No acute vascular or nonvascular findings. 2. Moderate volume stool within the colon recommend correlation for constipation. 3. Additional incidental/chronic findings, as above. Report Dictated By: Clarence Cisse MD at 07/25/2018 1:06 AM ED Course/Re-evaluation Clinical Indication for ER IV: IV Access ED Course The patient has severe pain. We gave her some morphine initially, minimal improvement. Also some IV Protonix and Zofran as well as a liter of normal saline. Labs are unremarkable. Repeat EKG and troponin are negative. X-ray also negative. After this was completed, we went ahead and did a CT angiogram of the chest, abdomen and pelvis to rule out aortic dissection and other pathology. Amylase and lipase and liver functions are also negative. CT scan came back negative. Gave some Dilaudid to help with pain. GI cocktail was given and did help with pain a little bit as well. Based on findings this looks like it's more chest wall pain from inflammation or possibly due to her GI problems. Immune add Carafate to her GI regimen. With the question of inflammation, would not recommend anti-inflammatories other than a short-term trial of prednisone burst. We will give her some Percocet to use instead of her hydrocodone at home and she will follow-up with primary care or with Dr. Jurado as needed. Decision to Disposition Date: Jul 25, 2018 Decision to Disposition Time: 01:44 Depart Departure Latest Vital Signs Vital Signs Date Time Temp Pulse Resp B/P (MAP) Pulse Ox O2 Delivery O2 Flow Rate FiO2 07/25/18 01:45 72 9 96 07/25/18 01:30 113/62 (79) 07/24/18 22:29 98.1 Room Air Impression: Primary Impression: Abdominal pain Additional Impression: Chest pain Condition: Improved Disposition: HOME OR SELF-CARE Referrals: NAKUL GARCIA (PCP) New Scripts Sucralfate (CARAFATE) 1 Gm Tablet 1 GM PO QID, #120 TAB 0 Refills Prov: RANDAL CONTRERAS MD 07/25/18 Prednisone (PREDNISONE) 20 Mg Tablet 40 MG PO QDAY, #8 TAB 0 Refills Prov: RANDAL CONTRERAS MD 07/25/18 Oxycodone Hcl/Acetaminophen (PERCOCET 5-325 MG TABLET) 1 Each Tablet 1 EACH PO Q4H PRN for PAIN, #12 TAB 0 Refills Prov: RANDAL CONTRERAS MD 07/25/18 Patient Instructions: Abdominal Pain (ED), Chest Pain (ED) Additional Instructions: Keep taking your regular medicines. We will add a medicine that coats the stomach, Carafate 1g tablets, to use 4 times a day. Take Percocet 5/325, one every 4 hours as needed for pain. Take Prednisone 20mg tablets, 2 tablets once a day with food for 4 days. Follow-up with Dr. Zamudio. Problem Qualifiers Primary Impression: Abdominal pain Abdominal location: epigastric Qualified Codes: R10.13 - Epigastric pain Additional Impression: Chest pain Chest pain type: unspecified Qualified Codes: R07.9 - Chest pain, unspecified RANDAL CONTRERAS MD Jul 24, 2018 22:33
[2018-07-24] MEDS ORDERED: MORPHINE 4 MG/ML SDV IVP ONE (22:45)
[2018-07-24] MEDS ORDERED: ONDANSETRON 4 MG/2 ML VIAL IVP ONE (22:45)
[2018-07-24] MEDS ORDERED: NS(*) 0.9% 1000 ML BAG 1,000 ML IV ONE (22:45)
[2018-07-24] MEDS ORDERED: PANTOPRAZOLE SOD 40 MG IV VIAL IVP ONE (22:45)
[2018-07-24 23:02] LABS: PLATELET COUNT, AUTOMATED 354 K/uL (150-450)
--- NOTE | 2018-07-24 23:02 | EKG ---
FACILITY: [facility] PATIENT NAME: ZACH FLOREZ : [id number] MR: [id number] V: [id number] EXAM DATE: ORDERING PHYSICIAN: RANDAL CONTRERAS TECHNOLOGIST: ALVIN Test Reason : CHEST PAIN Blood Pressure : / mmHG Vent. Rate : 069 BPM Atrial Rate : 069 BPM P-R Int : 156 ms QRS Dur : 102 ms QT Int : 408 ms P-R-T Axes : 064 099 065 degrees QTc Int : 437 ms Sinus rhythm Possible right atrial enlargement Nonspecific interventricular conduction delay Similar to previous EKG Confirmed by MIGUELINA RAY ([id number]) on 07/25/2018 5:41:09 AM Referred By: Confirmed By:MIGUELINA RAY
[2018-07-24 23:20] LABS: INR 0.96
--- NOTE | 2018-07-24 23:40 | RADIOLOGY IMAGING REPORT ---
FACILITY: [facility] [place] PATIENT NAME: Mary Cui : 1970 MR: [id number] V: [id number] EXAM DATE: ORDERING PHYSICIAN: RANDAL CONTRERAS TECHNOLOGIST: Location: [facility] [place] Patient: Mary Cui : 1970 Visit/Account:[id number] Date of Sevice: 07/24/2018 CHEST: Indication: Chest pain. Technique: Frontal and lateral views were obtained. Comparison: A prior study from earlier the same day. Skeletal and soft tissue structures: There are mild degenerative changes in the spine. No acute skele mariano deformity is identified. Heart and mediastinum: Within normal limits. Lung milton: Well expanded and clear. No focal or diffuse opacities. Pleural spaces: Unremarkable. Impression: No acute process or significant change. Report Dictated By: Ron Armstrong MD at 07/24/2018 11:33 PM Report E-Signed By: Ron Armstrong MD at 07/24/2018 11:36 PM WSN:[id number]
[2018-07-24] MEDS ORDERED: MAG HYD/AL HYD/SIMETH 30ML UDC PO ONE (23:55)
[2018-07-24] MEDS ORDERED: LIDOCAINE 2% VISC SLN 15ML UDC PO ONE (23:55)
[2018-07-24] MEDS ORDERED: ATRO/SCOPOL/HYOSCY/PB 5 ML ELX PO ONE (23:55)
[2018-07-25] MEDS ORDERED: NS(*) 0.9% 50 ML BAG 50 ML ONE (00:26)
[2018-07-25] MEDS ORDERED: IOPAMIDOL 76% 150 ML INFUS BTL 150 ML ONE (00:32)
[2018-07-25] MEDS ORDERED: HYDROMORPHONE HCL 1 MG/ML SYRINGE IVP ONE (00:50)
--- NOTE | 2018-07-25 01:16 | RADIOLOGY IMAGING REPORT ---
FACILITY: [facility] PATIENT NAME: Mary Cui : 1970 MR: [id number] V: [id number] EXAM DATE: ORDERING PHYSICIAN: RANDAL CONTRERAS TECHNOLOGIST: Location: [facility] - [place] Patient: Mary Cui : 1970 Visit/Account:[id number] Date of Sevice: 07/24/2018 CT CTA CHEST ABDOMEN PELVIS W & W/O HISTORY: Chest and epigastric pain. TECHNIQUE: CTA chest, abdomen and pelvis without and with contrast. 3D coronal slab MIPs and 2D rec onstructions in the coronal and sagittal planes were also created. One of the following dose optimization techniques was utilized in the performance of this exam: Autom ated exposure control; adjustment of the mA and/or kV according to the patient's size; or use of an i terative reconstruction technique. Specific details can be referenced in the facility's radiology CT exam operational policy. CONTRAST: 75 mL Isovue-370. COMPARISON: CT abdomen/pelvis dated March 04, 2018. CT chest dated September 21, 2008. FINDINGS: Chest: Vessels: Negative. No evidence for aneurysm or dissection. Heart: Negative. Mediastinum: Negative. Lymph nodes: Negative. Lungs/pleura: Negative. Bones/soft tissues: Negative. Abdomen and Pelvis: Vessels: No aneurysm or dissection. Minimal atherosclerosis within the infrarenal abdominal aorta. Hepatobiliary: Gallbladder surgically absent. Otherwise negative. Spleen: Negative. Adrenals: Negative. Pancreas: Negative. Kidneys/: Punctate 1 mm nonobstructing calculus within the left kidney. Small bilateral renal cyst s and subcentimeter hypodensities which are too small to characterize however statistically represent s cysts. Uterus surgically absent. Otherwise negative. GI: Moderate volume stool within the colon. Appendix appears to be absent. Otherwise negative. No wa ll thickening or evidence for obstruction. Spaces/nodes: Negative. Bones/soft tissues: Negative. IMPRESSION: 1. No acute vascular or nonvascular findings. 2. Moderate volume stool within the colon recommend correlation for constipation. 3. Additional incidental/chronic findings, as above. Report Dictated By: Clarence Cisse MD at 07/25/2018 1:06 AM Report E-Signed By: Clarence Cisse MD at 07/25/2018 1:12 AM WSN:[id number]
[2018-07-25 01:30] VITALS: BP 113/62
[2018-07-25] MEDS ORDERED: SUCRALFATE 1 GM TAB PO ONE (01:45)
[2018-07-25] MEDS ORDERED: oxyCODONE/ACETAMIN 5/325MG TH 2 TAB/BOTTLE PO ONE (01:45)
[2018-07-25] MEDS ORDERED: predniSONE 20 MG TAB PO ONE (01:45)
[2018-07-25] MEDS ORDERED: PRED20TA6 PO (01:46)
[2018-07-25] MEDS ORDERED: SUCR1TAB85 PO (01:46)
[2018-07-25] MEDS ORDERED: OXYC-865 PO (01:46)
== END 2018-07-25 01:56 | disposition home or self-care (01) ==
LOC: ER 22:40
DX: R10.13 Epigastric pain (principal); R07.9 Chest pain, unspecified
CPT/HCPCS: 36415; 71046; 71275; 74174; 82150; 83690; 84484; 85025; 85610; 85651; 85730; 86140; 93005; 96361; 96374; 96375; 99285; C9113; J1170; J2270; J2405; J7030; J7050; J7512; Q9967; 82040; 82247; 82310; 82374; 82435; 82565; 82947; 84075; 84132; 84155; 84295; 84450; 84460; 84520

== ENCOUNTER → 2018-07-24 | Outpatient (CLI) | payer BC ==
[~2018-07-24] MED LIST changes: +CYCL10TA29 PO; +DULO60CA7 PO; +OXYC-865 PO; +PRED20TA6 PO; +RANI-320 PO; +SUCR1TAB85 PO
--- NOTE | 2018-07-24 16:38 | EKG ---
[facility] PATIENT NAME: ZACH FLOREZ : [id number] MR: [id number] V: [id number] EXAM DATE: ORDERING PHYSICIAN: MISHEL PEÑA TECHNOLOGIST: CUONG Amado Reason : CP Blood Pressure : / mmHG Vent. Rate : 070 BPM Atrial Rate : 070 BPM P-R Int : 146 ms QRS Dur : 108 ms QT Int : 368 ms P-R-T Axes : 075 133 070 degrees QTc Int : 397 ms Sinus rhythm Possible biatrial enlargement Nonspecific interventricular conduction delay Abnormal ECG No previous ECGs available Confirmed by MIGUELINA RAY ([id number]) on 07/25/2018 5:33:40 AM Referred By: Confirmed By:MIGUELINA RAY
[2018-07-24 16:42] LABS: PLATELET COUNT, AUTOMATED 333 K/uL (150-450)
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
== END ==
LOC: RAD 16:07
PROVIDERS: ATTEND Nurse Practitioner Family
DX: R94.31 Abnormal electrocardiogram [ECG] [EKG] (principal); R07.9 Chest pain, unspecified; R06.02 Shortness of breath; R00.2 Palpitations
CPT/HCPCS: 36415; 71046; 82040; 82247; 82310; 82374; 82435; 82565; 82947; 84075; 84132; 84155; 84295; 84443; 84450; 84460; 84484; 84520; 85025; 85379; 93005

== ENCOUNTER 2018-08-05 17:37 | Emergency (ER) | payer BC ==
[~2018-08-05 17:37] MED LIST changes: +OXYC-865 PO; +SUCR1TAB85 PO
--- NOTE | 2018-08-05 17:50 | ER Report ---
History and Physical Time Seen By MD: 17:50 HPI/ROS CHIEF COMPLAINT: chest pain HISTORY OF PRESENT ILLNESS:48 year old female presents to ED with chest pain. Patient reports she has had chest pain for two weeks. She reported to the ED two weeks ago for chest pain and sent home without definitive diagnosis. Patient states the chest pain was mild since previous visit, but today the pain increased significantly. Reports pain is 9 out of 10, sharp, constant in epigastric and right sub-costal area. Reports pain radiates to the back. Reports that lying down and walking helps decrease the pain, but sitting for long periods and eating exacerbates the pain. Reports she took a hydrocodone at home, but it hasn't "touched the pain". Reports to taking a prescribed anit-reflux medication 4 times a day before meals, but this has not helped her pain, especially today. Denies taking aspirin today. Denies recent trauma that could cause MSK pain. Patient also reports headache pain located in temporal and occipital area. Denies changes in vision, but reports that it feels like a migraine coming on. Reports headache pain a 7 out of 10. Reports she takes imitrex for her migraines; has not taken a dose of imitrex today. REVIEW OF SYSTEMS: Respiratory: No cough, no chest congestion, reports some shortness of breath (states she is unsure if this is due to anxiety). Reports chest pain when taking a deep breath. Cardiovascular: Reports chest pain located in epigastric area and right subcostal, radiates to the back. Denies palpitations. Gastrointestinal: Reports nausea, no vomiting, no change in bowel habits. Genitourinary: Denies burning or frequency of urination. Musculoskeletal: Chest pain radiates to the back; no other MSK pain. Psych: Reports hx of depression, anxiety, and panic attacks. Allergies: Coded Allergies: Sulfa (Sulfonamide Antibiotics) (Verified Allergy, Mild, 07/24/18) Home Meds Active Scripts Oxycodone Hcl/Acetaminophen (PERCOCET 5-325 MG TABLET) 1 Each Tablet, 1 EACH PO Q4-6H PRN for PAIN, #10 TAB Prov:HOLLY SANDOVAL 08/05/18 Sucralfate (CARAFATE) 1 Gm Tablet, 1 GM PO QID, #120 TAB 0 Refills Prov:RANDAL CONTRERAS MD 07/25/18 Prednisone (PREDNISONE) 20 Mg Tablet, 40 MG PO QDAY, #8 TAB 0 Refills Prov:RANDAL CONTRERAS MD 07/25/18 Oxycodone Hcl/Acetaminophen (PERCOCET 5-325 MG TABLET) 1 Each Tablet, 1 EACH PO Q4H PRN for PAIN, #12 TAB 0 Refills Prov:RANDAL CONTRERAS MD 07/25/18 Ranitidine Hcl (RANITIDINE HCL) 300 Mg Tablet, 1 TAB PO QHS, #60 TAB 6 Refills Prov:TODD ZAMUDIO MD 06/03/18 Pantoprazole Sodium (PANTOPRAZOLE SODIUM) 40 Mg Tablet.dr, 1 TAB PO QDAY, #60 TAB.SR 3 Refills Prov:TODD ZAMUDIO MD 06/03/18 Potassium Chloride (KLOR-CON M20) 20 Meq Tab.er.prt, 20 MEQ PO QDAY, #30 TAB 0 Refills Prov:RANDAL CONTRERAS MD 02/19/18 Ondansetron (ZOFRAN ODT) 4 Mg Tab.rapdis, 4 MG PO Q6H PRN for NAUSEA/VOMITING, #20 TAB.TIMOTHY 0 Refills Prov:RANDAL CONTRERAS MD 02/19/18 Reported Medications Duloxetine HCl (Duloxetine HCl) 60 Mg Capsule.dr, 30 MG PO QHS 05/19/18 Duloxetine HCl (Duloxetine HCl) 60 Mg Capsule.dr, 60 MG PO QAM 05/19/18 Sumatriptan Succinate (IMITREX) 25 Mg Tablet, 25 MG PO ONCE PRN for MIGRAINE 05/01/18 Lorazepam (LORAZEPAM) 0.5 Mg Tablet, 1 TAB PO TID PRN for PRN 04/02/18 Topiramate (TOPIRAMATE) 25 Mg Tablet, 2 TAB PO BID 04/02/18 Acetaminophen/Hydrocodone (HYDROCODON-ACETAMINOPH 7.5-325) 1 Each Ea, 1 TAB PO QID, EA 04/02/18 Gabapentin (GABAPENTIN) 300 Mg Capsule, 2 TAB PO QID, CAPSULE 02/09/18 Furosemide (FUROSEMIDE) 20 Mg Tablet, 1 TAB PO QDAY, TAB 02/09/18 Past Medical/Surgical History Patient reports history of anxiety, depression, panic attacks, possible GERD, migraines. Past surgical history of appendectomy, hysterectomy, cholecystectomy. Hx Smoking: Yes (1/2 PPD X 10 YRS) Smoking Status: Current: Every Day Smoker Exposure to Second Hand Smoke?: No Hx Substance Use Disorder: No Hx Alcohol Use: No Constitutional Vital Sign - Last 24 Hours 08/05/18 08/05/18 08/05/18 08/05/18 17:37 17:43 17:45 18:00 Temp 98.6 Pulse ??? 75 Resp 16 B/P (MAP) 129/62 (84) 132/80 128/83 (98) Pulse Ox 96 O2 Delivery Room Air 08/05/18 08/05/18 08/05/18 08/05/18 18:07 18:20 18:37 18:40 Pulse 85 71 Resp 13 17 B/P (MAP) 124/67 (86) 122/66 (84) Pulse Ox 92 92 08/05/18 08/05/18 08/05/18 08/05/18 19:00 19:27 19:32 19:40 Pulse 71 Resp 0 B/P (MAP) 122/71 (88) 143/80 (101) 133/78 (96) Pulse Ox 93 08/05/18 08/05/18 08/05/18 08/05/18 19:47 20:00 20:02 20:17 Pulse 75 68 66 B/P (MAP) 130/100 (110) Pulse Ox 97 85 97 08/05/18 08/05/18 08/05/18 20:20 20:32 20:40 B/P (MAP) 137/74 (95) 110/51 (70) Pulse Ox 93 Physical Exam General Appearance: The patient is alert, has no immediate need for airway protection and no current signs of toxicity. Respiratory: Chest is non tender, lungs with decreased breath sounds in bases bilaterally. Cardiac: regular rate and rhythm Gastrointestinal: Abdomen is soft, but with slight distention, no masses, bowel sounds normal. Reports pain with palpation to RUQ, LLQ, RLQ, and right subcostal margin. Musculoskeletal: Neck: Neck is supple and non tender. Extremities have full range of motion and are non tender. Skin: No rashes or lesions. [DIFFERENTIAL DIAGNOSIS: After history and physical exam differential diagnosis was considered for gastroesophageal reflux, pancreatitis, myocardial ischemia, pulmonary embolism, anxiety, urinary tract infection, liver inflammation, chronic pain. Medical Decision Making Data Points Result Diagram: 08/05/18 1754 08/05/18 1754 Laboratory Hematology Test 08/05/18 17:54 08/05/18 18:05 Red Blood Count 5.06 M/uL (4.17-5.56) Mean Corpuscular Volume 93.1 fL (80.0-96.0) Mean Corpuscular Hemoglobin 31.2 pg (26.0-33.0) Mean Corpuscular Hemoglobin Concent 33.5 g/dL (32.0-36.0) Red Cell Distribution Width 12.7 % (11.5-14.5) Mean Platelet Volume 6.9 fL (7.2-11.1) Neutrophils (%) (Auto) 60.9 % (39.4-72.5) Lymphocytes (%) (Auto) 28.9 % (17.6-49.6) Monocytes (%) (Auto) 7.4 % (4.1-12.4) Eosinophils (%) (Auto) 1.6 % (0.4-6.7) Basophils (%) (Auto) 1.2 % (0.3-1.4) Nucleated RBC Relative Count (auto) 0.1 /100WBC Neutrophils # (Auto) 5.2 K/uL (2.0-7.4) Lymphocytes # (Auto) 2.5 K/uL (1.3-3.6) Monocytes # (Auto) 0.6 K/uL (0.3-1.0) Eosinophils # (Auto) 0.1 K/uL (0.0-0.5) Basophils # (Auto) 0.1 K/uL (0.0-0.1) Nucleated RBC Absolute Count (auto) 0.01 K/uL D-Dimer Quantitative (PE/DVT) 0.29 ug/ml (0-0.50) Sodium Level 138 mmol/L (137-145) Potassium Level 3.6 mmol/L (3.5-5.0) Chloride Level 106 mmol/L (98-107) Carbon Dioxide Level 24 mmol/L (22-31) Blood Urea Nitrogen 26 mg/dl (7-18) Creatinine 0.70 mg/dl (0.52-1.04) Glomerular Filtration Rate Calc > 60.0 Random Glucose 92 mg/dl (75-110) Calcium Level 9.0 mg/dl (8.4-10.2) Total Bilirubin 0.1 mg/dl (0.2-1.3) Aspartate Amino Transf (AST/SGOT) 34 U/L (0-35) Alanine Aminotransferase (ALT/SGPT) 44 U/L (0-56) Alkaline Phosphatase 58 U/L (0-126) Troponin I < 0.012 ng/ml Total Protein 6.8 g/dl (6.3-8.2) Albumin 4.3 g/dl (3.5-5.0) Amylase Level 51 U/L (0-110) Lipase 86 U/L (23-300) Human Chorionic Gonadotropin, Qual Negative (NEGATIVE) Urine Color Straw Urine Clarity Slightly-cloudy Urine pH 5.0 pH (4.8-9.5) Urine Specific [place] 1.010 Urine Protein Negative mg/dL (NEGATIVE) Urine Glucose (UA) Negative mg/dL (NEGATIVE) Urine Ketones Negative mg/dL (NEGATIVE) Urine Blood Negative (NEGATIVE) Urine Nitrite Negative (NEGATIVE) Urine Bilirubin Negative (NEGATIVE) Urine Urobilinogen Negative mg/dL (0.2-1.9) Urine Leukocyte Esterase Negative (NEGATIVE) Urine RBC <1 /HPF (0-2/HPF) Urine WBC 1 /HPF (0-5/HPF) Urine Squamous Epithelial Cells Many /LPF (</=FEW) Urine Bacteria Negative /HPF (NONE-FEW) Urine Mucus None /HPF (NONE-FEW) Chemistry Test 08/05/18 17:54 08/05/18 18:05 White Blood Count 8.5 k/uL (4.5-11.0) Red Blood Count 5.06 M/uL (4.17-5.56) Hemoglobin 15.8 g/dL (12.0-16.0) Hematocrit 47.1 % (34.0-47.0) Mean Corpuscular Volume 93.1 fL (80.0-96.0) Mean Corpuscular Hemoglobin 31.2 pg (26.0-33.0) Mean Corpuscular Hemoglobin Concent 33.5 g/dL (32.0-36.0) Red Cell Distribution Width 12.7 % (11.5-14.5) Platelet Count 308 K/uL (150-450) Mean Platelet Volume 6.9 fL (7.2-11.1) Neutrophils (%) (Auto) 60.9 % (39.4-72.5) Lymphocytes (%) (Auto) 28.9 % (17.6-49.6) Monocytes (%) (Auto) 7.4 % (4.1-12.4) Eosinophils (%) (Auto) 1.6 % (0.4-6.7) Basophils (%) (Auto) 1.2 % (0.3-1.4) Nucleated RBC Relative Count (auto) 0.1 /100WBC Neutrophils # (Auto) 5.2 K/uL (2.0-7.4) Lymphocytes # (Auto) 2.5 K/uL (1.3-3.6) Monocytes # (Auto) 0.6 K/uL (0.3-1.0) Eosinophils # (Auto) 0.1 K/uL (0.0-0.5) Basophils # (Auto) 0.1 K/uL (0.0-0.1) Nucleated RBC Absolute Count (auto) 0.01 K/uL D-Dimer Quantitative (PE/DVT) 0.29 ug/ml (0-0.50) Glomerular Filtration Rate Calc > 60.0 Calcium Level 9.0 mg/dl (8.4-10.2) Total Bilirubin 0.1 mg/dl (0.2-1.3) Aspartate Amino Transf (AST/SGOT) 34 U/L (0-35) Alanine Aminotransferase (ALT/SGPT) 44 U/L (0-56) Alkaline Phosphatase 58 U/L (0-126) Troponin I < 0.012 ng/ml Total Protein 6.8 g/dl (6.3-8.2) Albumin 4.3 g/dl (3.5-5.0) Amylase Level 51 U/L (0-110) Lipase 86 U/L (23-300) Human Chorionic Gonadotropin, Qual Negative (NEGATIVE) Urine Color Straw Urine Clarity Slightly-cloudy Urine pH 5.0 pH (4.8-9.5) Urine Specific [place] 1.010 Urine Protein Negative mg/dL (NEGATIVE) Urine Glucose (UA) Negative mg/dL (NEGATIVE) Urine Ketones Negative mg/dL (NEGATIVE) Urine Blood Negative (NEGATIVE) Urine Nitrite Negative (NEGATIVE) Urine Bilirubin Negative (NEGATIVE) Urine Urobilinogen Negative mg/dL (0.2-1.9) Urine Leukocyte Esterase Negative (NEGATIVE) Urine RBC <1 /HPF (0-2/HPF) Urine WBC 1 /HPF (0-5/HPF) Urine Squamous Epithelial Cells Many /LPF (</=FEW) Urine Bacteria Negative /HPF (NONE-FEW) Urine Mucus None /HPF (NONE-FEW) Coagulation Test 08/05/18 17:54 D-Dimer Quantitative (PE/DVT) 0.29 ug/ml Urinalysis Test 08/05/18 18:05 Urine Color Straw Urine Clarity Slightly-cloudy Urine pH 5.0 pH (4.8-9.5) Urine Specific [place] 1.010 Urine Protein Negative mg/dL (NEGATIVE) Urine Glucose (UA) Negative mg/dL (NEGATIVE) Urine Ketones Negative mg/dL (NEGATIVE) Urine Blood Negative (NEGATIVE) Urine Nitrite Negative (NEGATIVE) Urine Bilirubin Negative (NEGATIVE) Urine Urobilinogen Negative mg/dL (0.2-1.9) Urine Leukocyte Esterase Negative (NEGATIVE) Urine RBC <1 /HPF (0-2/HPF) Urine WBC 1 /HPF (0-5/HPF) Urine Squamous Epithelial Cells Many /LPF (</=FEW) Urine Bacteria Negative /HPF (NONE-FEW) Urine Mucus None /HPF (NONE-FEW) EKG/Imaging EKG Interpretation 12 lead EKG: Rhythm: normal sinus rhythm [place]: normal QRS: normal ST segments: normal Imaging COMPUTED TOMOGRAPHY OF THE Abdomen and Pelvis with CONTRAST INDICATION: Abdominal pain. TECHNIQUE: Contiguous axial 3.[address] images were obtained through the abdomen and pelvis after 75 cc Isovue-370. Coronal and sagittal reformatted images were submitted. COMPARISON: Ultrasound of the abdomen, same day.. FINDINGS: Lung bases: The lung bases are clear. Liver and hepatic vasculature: No focal liver lesion. The liver surface may be mildly nodular. Gallbladder and bile ducts: Surgically absent gallbladder. Mild prominence of the common bile duct in keeping with cholecystectomy. Spleen: Normal Pancreas: Normal Adrenals: Normal Kidneys, ureters and bladder: Several small renal hypodensities are likely cysts. Some are too small to characterize. Normal-appearing bladder. No stones. Multiple phleboliths in the pelvis. Retroperitoneum and aorta: Mild aortic atherosclerosis. No aneurysm. GI tract, mesentery and peritoneum: The appendix is likely surgically absent. Moderate volume of stool in colon. No free fluid or free air. No findings of diverticulitis or colitis. Uterus and adnexa: Surgically absent uterus. Bones and soft tissues: No acute osseous abnormality. IMPRESSION: 1. No clear evidence of acute intra-abdominal abnormality. 2. Chronic findings as above. One of the following dose optimization techniques was utilized in the performance of this exam: Automated exposure control; adjustment of the mA and/or kV according to the patient's size; or use of an iterative reconstruction technique. Specific details can be referenced in the facility's radiology CT exam operational policy. Report Dictated By: Abby Medina MD at 08/05/2018 7:57 PM Report E-Signed By: Abby Medina MD at 08/05/2018 8:14 PM 2 VIEWS CHEST INDICATION: Chest pain. COMPARISON: 07/24/2018. FINDINGS: Cardiomediastinal silhouette and pulmonary vessels within normal limits. There is no focal infiltrate or lobar consolidation. There is no pneumothorax or pleural effusion. No discrete nodule. Upper abdomen is unremarkable. No acute bony abnormality. IMPRESSION: 1. No acute cardiopulmonary process. Report Dictated By: Aries Cavanaugh at 08/05/2018 6:42 PM Report E-Signed By: Aries Cavanaugh at 08/05/2018 6:44 PM ED Course/Re-evaluation ED Course Patient was admitted to an exam room, history and physical was performed, EKG performed, labs drawn, differential diagnoses considered for myocardial ischemia, pulmonary embolism, GERD, pancreatitis, liver inflammation, urinary tract infection, chronic pain. Patient hydrated with NS, dilaudid given for pain. Labs drawn, chest x-ray, and abdominal CT performed. Lab work and imaging were unremarkable. Patient did have persistent pain. She did seem to be improved after her initial dose of Dilaudid. As that wore off she is requesting more pain medication did receive a dose of 4 mg of morphine. I explained the results with her. I'm not finding any acute findings that are standing out. This could very well be chronic pain secondary to her lap band which she had. However since I'm not finding any acute findings and would like her to follow-up with gastroenterology. She is follow-up with her primary care provider in the next week. I did give her the names and number of a couple of the meter calibrator around here. Patient will be given a limited supply of pain medication. She is to follow-up with her maintenance painter this month. Patient verbalized understanding and agreement with plan. Decision to Disposition Date: Aug 05, 2018 Decision to Disposition Time: 20:41 Depart Departure Latest Vital Signs Vital Signs Date Time Temp Pulse Resp B/P (MAP) Pulse Ox O2 Delivery O2 Flow Rate FiO2 08/05/18 20:40 110/51 (70) 08/05/18 20:32 93 08/05/18 20:17 66 08/05/18 19:32 0 08/05/18 17:45 98.6 Room Air Impression: Primary Impression: Abdominal pain Condition: Condition Unchanged Disposition: HOME OR SELF-CARE Referrals: NAKUL GARCIA (PCP) New Scripts Oxycodone Hcl/Acetaminophen (PERCOCET 5-325 MG TABLET) 1 Each Tablet 1 EACH PO Q4-6H PRN for PAIN, #10 TAB Prov: HOLLY SANDOVAL 08/05/18 Patient Instructions: Abdominal Pain (ED) Additional Instructions: Increase fluid intake. Limit activity by pain. Return to the ER if condition worsens. Follow up with your primary care provider in the next week. I would recommend following up with gastroenterology: Dr. [place] [address] [facility] [place] . Dr. Christianson [address] [facility] [place] Take medication as prescribed. You can add in a stool softener (Colace) to help prevent constipation. Problem Qualifiers Primary Impression: Abdominal pain Abdominal location: generalized Qualified Codes: R10.84 - Generalized abdominal pain HOLLY SANDOVAL Aug 05, 2018 17:50
[2018-08-05] MEDS ORDERED: HYDROMORPHONE HCL 1 MG/ML SYRINGE IVP ONE (17:55)
[2018-08-05] MEDS ORDERED: NS(*) 0.9% 1000 ML BAG 1,000 ML IV ONE (17:55)
[2018-08-05] MEDS ORDERED: ASPIRIN 81 MG CHEW PO ONE (17:55)
--- NOTE | 2018-08-05 17:59 | EKG ---
FACILITY: [facility] PATIENT NAME: ZACH FLOREZ : [id number] MR: [id number] V: [id number] EXAM DATE: ORDERING PHYSICIAN: HOLLY SANDOVAL TECHNOLOGIST: GULSHAN Amado Reason : CP Blood Pressure : / mmHG Vent. Rate : 075 BPM Atrial Rate : 075 BPM P-R Int : 148 ms QRS Dur : 100 ms QT Int : 392 ms P-R-T Axes : 046 018 018 degrees QTc Int : 437 ms Normal sinus rhythm Normal ECG When compared with ECG of 24-JUL-2018 22:42, Previous ECG has undetermined rhythm, needs review T wave inversion now evident in Inferior leads Confirmed by TODD ARRIAZA ([id number]) on 08/06/2018 6:26:09 AM Referred By: CORBY Confirmed By:TODD ARRIAZA
[2018-08-05 18:05] LABS: PLATELET COUNT, AUTOMATED 308 K/uL (150-450)
--- NOTE | 2018-08-05 18:48 | RADIOLOGY IMAGING REPORT ---
[facility] PATIENT NAME: Mary Cui : 1970 MR: [id number] V: [id number] EXAM DATE: ORDERING PHYSICIAN: HOLLY SANDOVAL TECHNOLOGIST: Location: [facility] [place] Patient: Mary Cui : 1970 Visit/Account:[id number] Date of Sevice: 08/05/2018 2 VIEWS CHEST INDICATION: Chest pain. COMPARISON: 07/24/2018. FINDINGS: Cardiomediastinal silhouette and pulmonary vessels within normal limits. There is no focal infiltrate or lobar consolidation. There is no pneumothorax or pleural effusion. No discrete nodule. Upper abdomen is unremarkable. No acute bony abnormality. IMPRESSION: 1. No acute cardiopulmonary process. Report Dictated By: Aries Cavanaugh at 08/05/2018 6:42 PM Report E-Signed By: Aries Cavanaugh at 08/05/2018 6:44 PM WSN:[id number]
[2018-08-05] MEDS ORDERED: IOPAMIDOL 61% 75 ML INFUS BTL 75 ML ONE (19:11)
[2018-08-05] MEDS ORDERED: MORPHINE 4 MG/ML SDV IVP ONE (20:05)
--- NOTE | 2018-08-05 20:18 | RADIOLOGY IMAGING REPORT ---
FACILITY: [facility] [place] PATIENT NAME: Mary Cui : 1970 MR: [id number] V: [id number] EXAM DATE: ORDERING PHYSICIAN: HOLLY SANDOVAL TECHNOLOGIST: Location: [facility] Patient: Mary Cui : 1970 Visit/Account:[id number] Date of Sevice: 08/05/2018 COMPUTED TOMOGRAPHY OF THE Abdomen and Pelvis with CONTRAST INDICATION: Abdominal pain. TECHNIQUE: Contiguous axial 3.[address] images were obtained through the abdomen and pelvis after 75 c c Isovue-370. Coronal and sagittal reformatted images were submitted. COMPARISON: Ultrasound of the abdomen, same day.. FINDINGS: Lung bases: The lung bases are clear. Liver and hepatic vasculature: No focal liver lesion. The liver surface may be mildly nodular. Gallbladder and bile ducts: Surgically absent gallbladder. Mild prominence of the common bile duct i n keeping with cholecystectomy. Spleen: Normal Pancreas: Normal Adrenals: Normal Kidneys, ureters and bladder: Several small renal hypodensities are likely cysts. Some are too small to characterize. Normal-appearing bladder. No stones. Multiple phleboliths in the pelvis. Retroperitoneum and aorta: Mild aortic atherosclerosis. No aneurysm. GI tract, mesentery and peritoneum: The appendix is likely surgically absent. Moderate volume of stoo l in colon. No free fluid or free air. No findings of diverticulitis or colitis. Uterus and adnexa: Surgically absent uterus. Bones and soft tissues: No acute osseous abnormality. IMPRESSION: 1. No clear evidence of acute intra-abdominal abnormality. 2. Chronic findings as above. One of the following dose optimization techniques was utilized in the performance of this exam: Autom ated exposure control; adjustment of the mA and/or kV according to the patient's size; or use of an i terative reconstruction technique. Specific details can be referenced in the facility's radiology C T exam operational policy. Report Dictated By: Abby Medina MD at 08/05/2018 7:57 PM Report E-Signed By: Abby Medina MD at 08/05/2018 8:14 PM WSN:[id number]
[2018-08-05] MEDS ORDERED: OXYC-865 PO (20:37)
[2018-08-05 20:40] VITALS: BP 110/51
[2018-08-05] MEDS ORDERED: oxyCODONE/ACETAMIN 5/325MG TH 2 TAB/BOTTLE PO ONE (20:50)
== END 2018-08-05 20:51 | disposition home or self-care (01) ==
LOC: ER 18:04
DX: R10.84 Generalized abdominal pain (principal)
CPT/HCPCS: 71046; 74177; 81001; 82150; 83690; 84484; 84703; 85025; 85379; 93005; 96361; 96374; 96375; 99284; J1170; J2270; J7030; Q9967; 82040; 82247; 82310; 82374; 82435; 82565; 82947; 84075; 84132; 84155; 84295; 84450; 84460; 84520

== ENCOUNTER 2018-08-22 10:37 | Emergency (ER) | payer BC ==
[2018-08-22 11:03] LABS: PLATELET COUNT, AUTOMATED 303 K/uL (150-450)
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
[2018-08-22] MEDS ORDERED: MAG HYD/AL HYD/SIMETH 30ML UDC PO ONE (11:35)
[2018-08-22] MEDS ORDERED: LIDOCAINE 2% VISC SLN 15ML UDC PO ONE (11:35)
--- NOTE | 2018-08-22 11:44 | EKG ---
FACILITY: [facility] - [place] PATIENT NAME: ZACH FLOREZ : [id number] MR: [id number] V: [id number] EXAM DATE: ORDERING PHYSICIAN: JEFF TAVAREZ TECHNOLOGIST: TATIANA Test Reason : NUMBNESS Blood Pressure : / mmHG Vent. Rate : 071 BPM Atrial Rate : 071 BPM P-R Int : 150 ms QRS Dur : 098 ms QT Int : 394 ms P-R-T Axes : 047 022 041 degrees QTc Int : 428 ms Normal sinus rhythm Normal ECG When compared with ECG of 05-AUG-2018 17:36, No significant change was found Confirmed by ULYSSES GORDON ([id number]) on 08/22/2018 11:17:38 PM Referred By: CORBY Confirmed By:ULYSSES GORDON
[2018-08-22] MEDS ORDERED: KETOROLAC 15 MG/ML VIAL IVP ONE (12:45)
[2018-08-22 13:00] VITALS: BP 125/69
--- NOTE | 2018-08-22 13:14 | RADIOLOGY IMAGING REPORT ---
FACILITY: [facility] - [place] PATIENT NAME: Mary Cui : 1970 MR: [id number] V: [id number] EXAM DATE: ORDERING PHYSICIAN: HOLLY SANDOVAL TECHNOLOGIST: Location: [facility] Patient: Mary Cui : 1970 Visit/Account:[id number] Date of Sevice: 08/22/2018 CHEST PA LAT INDICATION: chest pain COMPARISON: 08/05/2018 FINDINGS: Heart size within normal limits. There is no focal infiltrate or lobar consolidation. There is no pneumothorax or pleural effusion. IMPRESSION: 1. No acute cardiopulmonary process. Report Dictated By: Charles Mauricio at 08/22/2018 1:10 PM Report E-Signed By: Charles Mauricio at 08/22/2018 1:10 PM [id number]
[2018-08-22] MEDS ORDERED: KET10 PO (13:32)
== END 2018-08-22 13:45 | disposition home or self-care (01) ==
LOC: ER 11:01
DX: R07.89 Other chest pain (principal)
CPT/HCPCS: 71046; 84484; 85025; 93005; 96374; 99284; J1885; 82040; 82247; 82310; 82374; 82435; 82565; 82947; 84075; 84132; 84155; 84295; 84450; 84460; 84520

== ENCOUNTER → 2018-10-21 | Outpatient (REF) | payer BC ==
[~2018-10-21] MED LIST changes: +KET10 PO
[2018-10-21 13:11] LABS: PLATELET COUNT, AUTOMATED 370 K/uL (150-450)
== END ==
PROVIDERS: ATTEND Nurse Practitioner Family
DX: R19.7 Diarrhea, unspecified (principal)
CPT/HCPCS: 82040; 82247; 82310; 82374; 82435; 82565; 82947; 84075; 84132; 84155; 84295; 84450; 84460; 84520; 85025